=== PATIENT | female | born 1955 | race Caucasian/White ===

== ENCOUNTER → 2017-12-19 | Outpatient (CLI) | payer OTHER ==
[~2017-12-19] MED LIST: ACET325 PO; ANTI-DEPRESSANT; ANXIETY PILL; ASPI325 PO; Adipex-P37.5 M1 PO; HYDACE10B PO; LEVO750 PO; METR500 PO; NEBI5 PO; Prozac20 MG PO; SLEEPING PILL; TEMA30 PO
[2017-12-19 14:22] LABS: BASOPHILS ABSOLUTE AUTO 0.02 K/mm3 (0.00-0.23); BASOPHILS PERCENT AUTO 1 % (0-2); EOSINOPHILS ABSOLUTE AUTO 0.06 K/mm3 (0.00-0.68); EOSINOPHILS PERCENT AUTO 2 % (0-6); Hematocrit 43.2 % (33.0-51.0); Hemoglobin 14.7 g/dL (11.5-16.0); IMMATURE GRAN ABSOLUTE AUTO 0.02 K/mm3 (0.00-0.10); IMMATURE GRAN PERCENT AUTO 1 % (0-1); LYMPHOCYTES ABSOLUTE AUTO 0.87 K/mm3 (0.84-5.20); LYMPHOCYTES PERCENT AUTO 27 % (21-46); MONOCYTES ABSOLUTE AUTO 0.52 K/mm3 (0.16-1.47); MONOCYTES PERCENT AUTO 16 % (4-13); Mean Corpuscular HGB 33.9 pg (26.0-34.0); Mean Corpuscular Volume 100 fL (80-100); Mean Platelet Volume 11.1 fL (9.1-12.4); NEUTROPHILS ABSOLUTE AUTO 1.78 K/mm3 (1.96-9.15); NEUTROPHILS PERCENT AUTO 55 % (41-73); Platelet Count 147 K/mm3 (150-400); RDW Coefficient Variation 11.9 % (11.7-14.2); RDW Standard Deviation 43.8 fL (35.1-46.3); Red Blood Cell Count 4.34 M/mm3 (3.80-5.20); White Blood Cell Count 3.27 K/mm3 (4.00-11.30)
[2017-12-19 14:37] LABS: Alanine Aminotransfer (ALT/SGP 32 U/L (12-78); Albumin, Blood 3.7 g/dL (3.4-5.0); Albumin/Globulin Ratio 1.1 (0.8-1.8); Alk Phos 106 U/L (40-126); Anion Gap 10 mmol/L (6-16); Aspartate Aminotrans (AST/SGOT 27 U/L (12-37); Bilirubin, Total 0.4 mg/dL (0.1-1.0); Blood Urea Nitrogen 10 mg/dL (8-24); Bun/Creatinine Ratio 10.6 (12.0-20.0); CO2, Blood 29 mmol/L (21-32); Calcium, Blood 8.4 mg/dL (8.5-10.1); Chloride, Blood 99 mmol/L (98-108); Creatinine, Blood 0.94 mg/dL (0.40-1.00); Globulin, Blood 3.4 g/dL (2.2-4.0); Glomerular Filtration Rate >60 (60-); Glucose, Blood 114 mg/dL (70-99); Potassium, Blood 3.4 mmol/L (3.5-5.5); Sodium, Blood 138 mmol/L (136-145); Total Protein, Blood 7.1 g/dL (6.4-8.2); Troponin I <0.017 ng/mL (0.000-0.040)
[2017-12-22 14:46] LABS: CHOL/HDL RATIO 5.7; Cholesterol 172 mg/dL (50-200); HDL Cholesterol 30 mg/dL (>39); LDL/HDL RATIO 4.1; Low Density Lipoprotein Chol 124 mg/dL (<110); Triglycerides 92 mg/dL (30-160); Very Low Density Lipoprot Chol 18 mg/dL (6-32)
== END | disposition home or self-care (01) ==
LOC: LAB EV 14:18
PROVIDERS: General Practice; Nurse Practitioner
DX: Z13.220 Encounter for screening for lipoid disorders (principal); I48.91 Unspecified atrial fibrillation
CPT/HCPCS: 80053; 80061; 84484; 85025

== ENCOUNTER → 2018-03-18 | Outpatient (CLI) | payer OTHER ==
[2018-03-18 15:21] LABS: BASOPHILS ABSOLUTE AUTO 0.06 K/mm3 (0.00-0.23); BASOPHILS PERCENT AUTO 1 % (0-2); EOSINOPHILS PERCENT AUTO 1 % (0-6); Hematocrit 41.4 % (33.0-51.0); Hemoglobin 14.1 g/dL (11.5-16.0); IMMATURE GRAN ABSOLUTE AUTO 0.05 K/mm3 (0.00-0.10); IMMATURE GRAN PERCENT AUTO 1 % (0-1); LYMPHOCYTES ABSOLUTE AUTO 1.43 K/mm3 (0.84-5.20); LYMPHOCYTES PERCENT AUTO 18 % (21-46); MONOCYTES ABSOLUTE AUTO 0.73 K/mm3 (0.16-1.47); MONOCYTES PERCENT AUTO 9 % (4-13); Mean Corpuscular HGB 34.1 pg (26.0-34.0); Mean Corpuscular HGB Conc 34.1 g/dL (31.5-36.5); Mean Corpuscular Volume 100 fL (80-100); Mean Platelet Volume 10.8 fL (9.1-12.4); NEUTROPHILS PERCENT AUTO 70 % (41-73); Platelet Count 226 K/mm3 (150-400); RDW Coefficient Variation 13.2 % (11.7-14.2); Red Blood Cell Count 4.13 M/mm3 (3.80-5.20); White Blood Cell Count 7.77 K/mm3 (4.00-11.30)
[2018-03-18 15:34] LABS: Alanine Aminotransfer (ALT/SGP 32 U/L (12-78); Albumin, Blood 3.7 g/dL (3.4-5.0); Alk Phos 126 U/L (40-126); Anion Gap 6 mmol/L (6-16); Aspartate Aminotrans (AST/SGOT 26 U/L (12-37); Bilirubin, Total 0.6 mg/dL (0.1-1.0); Blood Urea Nitrogen 12 mg/dL (8-24); Bun/Creatinine Ratio 12.8 (12.0-20.0); CO2, Blood 34 mmol/L (21-32); Calcium, Blood 8.8 mg/dL (8.5-10.1); Chloride, Blood 102 mmol/L (98-108); Creatinine, Blood 0.94 mg/dL (0.40-1.00); Globulin, Blood 3.6 g/dL (2.2-4.0); Glomerular Filtration Rate >60 (60-); Glucose, Blood 125 mg/dL (70-99); Potassium, Blood 3.7 mmol/L (3.5-5.5); Sodium, Blood 142 mmol/L (136-145); Total Protein, Blood 7.3 g/dL (6.4-8.2)
== END ==
LOC: LAB SHORT 15:18 → LAB EV 15:18
PROVIDERS: General Practice
DX: R10.9 Unspecified abdominal pain (principal)
CPT/HCPCS: 80053; 83690; 85025

== ENCOUNTER → 2018-09-15 | Outpatient (CLI) | payer OTHER | END | disposition home or self-care (01) | LOC: LAB SHORT 11:48 → LAB 11:48 | PROVIDERS: Nurse Practitioner | DX: N95.0 Postmenopausal bleeding (principal) | CPT/HCPCS: G0145 ==

== ENCOUNTER → 2018-10-04 | Outpatient (CLI) | payer OTHER ==
[~2018-10-04] MED LIST changes: +Lasix20 MG PO
[2018-10-04 17:34] LABS: BASOPHILS ABSOLUTE AUTO 0.04 K/mm3 (0.00-0.23); BASOPHILS PERCENT AUTO 1 % (0-2); EOSINOPHILS ABSOLUTE AUTO 0.07 K/mm3 (0.00-0.68); EOSINOPHILS PERCENT AUTO 1 % (0-6); Hematocrit 39.9 % (33.0-51.0); Hemoglobin 13.5 g/dL (11.5-16.0); IMMATURE GRAN ABSOLUTE AUTO 0.04 K/mm3 (0.00-0.10); IMMATURE GRAN PERCENT AUTO 1 % (0-1); LYMPHOCYTES ABSOLUTE AUTO 1.73 K/mm3 (0.84-5.20); LYMPHOCYTES PERCENT AUTO 22 % (21-46); MONOCYTES ABSOLUTE AUTO 0.82 K/mm3 (0.16-1.47); MONOCYTES PERCENT AUTO 10 % (4-13); Mean Corpuscular HGB 34.5 pg (26.0-34.0); Mean Corpuscular HGB Conc 33.8 g/dL (31.5-36.5); Mean Corpuscular Volume 102 fL (80-100); Mean Platelet Volume 11.5 fL (9.1-12.4); NEUTROPHILS PERCENT AUTO 66 % (41-73); Platelet Count 199 K/mm3 (150-400); RDW Coefficient Variation 13.5 % (11.7-14.2); Red Blood Cell Count 3.91 M/mm3 (3.80-5.20)
[2018-10-04 17:49] LABS: Alanine Aminotransfer (ALT/SGP 66 U/L (12-78); Albumin, Blood 3.6 g/dL (3.4-5.0); Albumin/Globulin Ratio 1.2 (0.8-1.8); Alk Phos 130 U/L (40-126); Anion Gap 10 mmol/L (6-16); Aspartate Aminotrans (AST/SGOT 40 U/L (12-37); Bilirubin, Total 0.9 mg/dL (0.1-1.0); Blood Urea Nitrogen 17 mg/dL (8-24); Bun/Creatinine Ratio 16.5 (12.0-20.0); CO2, Blood 27 mmol/L (21-32); Calcium, Blood 8.6 mg/dL (8.5-10.1); Chloride, Blood 100 mmol/L (98-108); Creatinine, Blood 1.03 mg/dL (0.40-1.00); Globulin, Blood 3.1 g/dL (2.2-4.0); Glomerular Filtration Rate 54 (60-); Glucose, Blood 120 mg/dL (70-99); Potassium, Blood 3.7 mmol/L (3.5-5.5); Sodium, Blood 137 mmol/L (136-145); Total Protein, Blood 6.7 g/dL (6.4-8.2); Troponin I <0.017 ng/mL (0.000-0.040)
== END ==
LOC: LAB SHORT 17:30 → LAB EV 17:30
PROVIDERS: Emergency Medicine
DX: R06.02 Shortness of breath (principal)
CPT/HCPCS: 80053; 83880; 84484; 85025

== ENCOUNTER → 2018-10-05 | Outpatient (CLI) | payer OTHER ==
[2018-10-05 10:16] LABS: Troponin I <0.015 ng/mL (0.000-0.040)
[2018-10-05 10:57] LABS: Thyroid Stimulating Hormone 3.301 uIU/mL (0.360-4.800)
== END | disposition home or self-care (01) ==
LOC: LAB EV 09:49 → LAB SHORT 09:49
PROVIDERS: Physician Assistant
DX: R07.9 Chest pain, unspecified (principal)
CPT/HCPCS: 83880; 84443; 84484; 85379

== ENCOUNTER 2018-10-06 11:50 | Emergency (ER) | payer OTHER ==
[~2018-10-06] VITALS: Ht 170.2 cm; Wt 123.0 kg
[~2018-10-06 11:50] MED LIST changes: -Lasix20 MG PO
[2018-10-06 12:44] LABS: BASOPHILS ABSOLUTE AUTO 0.06 K/mm3 (0.00-0.23); BASOPHILS PERCENT AUTO 1 % (0-2); EOSINOPHILS ABSOLUTE AUTO 0.06 K/mm3 (0.00-0.68); EOSINOPHILS PERCENT AUTO 1 % (0-6); Hemoglobin 14.2 g/dL (11.5-16.0); IMMATURE GRAN ABSOLUTE AUTO 0.09 K/mm3 (0.00-0.10); IMMATURE GRAN PERCENT AUTO 1 % (0-1); LYMPHOCYTES ABSOLUTE AUTO 1.52 K/mm3 (0.84-5.20); LYMPHOCYTES PERCENT AUTO 19 % (21-46); MONOCYTES ABSOLUTE AUTO 0.55 K/mm3 (0.16-1.47); MONOCYTES PERCENT AUTO 7 % (4-13); Mean Corpuscular HGB Conc 32.3 g/dL (31.5-36.5); Mean Platelet Volume 11.4 fL (9.1-12.4); NEUTROPHILS ABSOLUTE AUTO 5.66 K/mm3 (1.96-9.15); NEUTROPHILS PERCENT AUTO 71 % (41-73); NRBC ABSOLUTE 0.02 K/mm3 (0.00-0.02); NRBC Auto 0.3 /100 WBC (0.0-0.2); Platelet Count 200 K/mm3 (150-400); RDW Coefficient Variation 13.4 % (11.7-14.2); RDW Standard Deviation 51.2 fL (35.1-46.3); Red Blood Cell Count 4.18 M/mm3 (3.80-5.20); White Blood Cell Count 7.94 K/mm3 (4.00-11.30)
[2018-10-06 12:45] LABS: Mean Corpuscular Volume 105 fL (80-100)
[2018-10-06 13:08] LABS: Alanine Aminotransfer (ALT/SGP 94 U/L (12-78); Albumin, Blood 3.5 g/dL (3.4-5.0); Albumin/Globulin Ratio 1.2 (0.8-1.8); Alk Phos 139 U/L (50-136); Anion Gap 7 mmol/L (6-16); Aspartate Aminotrans (AST/SGOT 63 U/L (12-37); Bilirubin, Total 1.1 mg/dL (0.1-1.0); Blood Urea Nitrogen 14 mg/dL (8-24); Bun/Creatinine Ratio 15.5 (12.0-20.0); CO2, Blood 29 mmol/L (21-32); Calcium, Blood 8.5 mg/dL (8.5-10.1); Chloride, Blood 101 mmol/L (98-108); Glomerular Filtration Rate >60 (60-); Glucose, Blood 125 mg/dL (70-99); Potassium, Blood 3.5 mmol/L (3.5-5.5); Sodium, Blood 137 mmol/L (136-145); Total Protein, Blood 6.5 g/dL (6.4-8.2)
[2018-10-06] MEDS ORDERED: Lasix20 MG PO (16:21)
== END 2018-10-06 16:37 | disposition home or self-care (01) ==
LOC: ER 11:50
PROVIDERS: Physician Assistant
DX: I50.9 Heart failure, unspecified (principal); Z91.011 Allergy to milk products; Z79.899 Other long term (current) drug therapy; Z79.82 Long term (current) use of aspirin; I48.91 Unspecified atrial fibrillation
CPT/HCPCS: 36415; 71260; 80053; 85025; 93005; 93010; 99285-25; Q9967

== ENCOUNTER → 2018-10-14 | Outpatient (CLI) | payer OTHER ==
[~2018-10-14] MED LIST changes: +Lasix20 MG PO
== END | disposition home or self-care (01) ==
LOC: PLD 13:08 → LAB SHORT 13:08
DX: N95.0 Postmenopausal bleeding (principal)
CPT/HCPCS: 88305

== ENCOUNTER 2019-01-17 10:47 | Inpatient (IN) | payer OTHER ==
[~2019-01-17] VITALS: Ht 170.2 cm; Wt 113.5 kg
[~2019-01-17 10:47] MED LIST changes: +ELIQUIS5 MG PO; +LOSA50 PO; +METO50ER PO; +TORSE20 PO
[2019-01-17 11:45] LABS: BASOPHILS ABSOLUTE AUTO 0.04 K/mm3 (0.00-0.23); BASOPHILS PERCENT AUTO 1 % (0-2); EOSINOPHILS ABSOLUTE AUTO 0.07 K/mm3 (0.00-0.68); EOSINOPHILS PERCENT AUTO 1 % (0-6); Hematocrit 42.4 % (33.0-51.0); Hemoglobin 14.3 g/dL (11.5-16.0); IMMATURE GRAN ABSOLUTE AUTO 0.04 K/mm3 (0.00-0.10); IMMATURE GRAN PERCENT AUTO 1 % (0-1); LYMPHOCYTES ABSOLUTE AUTO 1.28 K/mm3 (0.84-5.20); LYMPHOCYTES PERCENT AUTO 22 % (21-46); MONOCYTES ABSOLUTE AUTO 0.46 K/mm3 (0.16-1.47); MONOCYTES PERCENT AUTO 8 % (4-13); Mean Corpuscular HGB Conc 33.7 g/dL (31.5-36.5); Mean Platelet Volume 10.8 fL (9.1-12.4); NEUTROPHILS ABSOLUTE AUTO 3.93 K/mm3 (1.96-9.15); NEUTROPHILS PERCENT AUTO 68 % (41-73); Platelet Count 176 K/mm3 (150-400); RDW Coefficient Variation 13.7 % (11.7-14.2); RDW Standard Deviation 52.6 fL (35.1-46.3); Red Blood Cell Count 4.08 M/mm3 (3.80-5.20); White Blood Cell Count 5.82 K/mm3 (4.00-11.30)
[2019-01-17 11:49] LABS: Mean Corpuscular Volume 104 fL (80-100)
[2019-01-17 11:59] LABS: Alanine Aminotransfer (ALT/SGP 29 U/L (12-78); Albumin, Blood 3.6 g/dL (3.4-5.0); Albumin/Globulin Ratio 0.9 (0.8-1.8); Alk Phos 131 U/L (50-136); Anion Gap 8 mmol/L (6-16); Aspartate Aminotrans (AST/SGOT 26 U/L (12-37); Bilirubin, Total 1.7 mg/dL (0.1-1.0); Blood Urea Nitrogen 13 mg/dL (8-24); Bun/Creatinine Ratio 16.3 (12.0-20.0); CO2, Blood 32 mmol/L (21-32); Calcium, Blood 8.4 mg/dL (8.5-10.1); Chloride, Blood 95 mmol/L (98-108); Globulin, Blood 3.8 g/dL (2.2-4.0); Glomerular Filtration Rate >60 (60-); Glucose, Blood 147 mg/dL (70-99); Potassium, Blood 2.9 mmol/L (3.5-5.5); Sodium, Blood 135 mmol/L (136-145); Total Protein, Blood 7.4 g/dL (6.4-8.2); Troponin I <0.015 ng/mL (0.000-0.040)
[2019-01-17 12:23] LABS: Base Excess Venous 10.4 mmol/L; Bicarbonate Venous 32.3 mmol/L (24.0-30.0); PCO2 Venous 51 mmHg (38-42); PO2 Venous 56.6 mmHg (38-42); pH Blood Venous 7.43 (7.34-7.37)
[2019-01-17] MEDS ORDERED: Norco 10-325 T1 EACH PO (13:54)
[2019-01-17] MEDS ORDERED: POTCHL10ER PO (13:58)
[2019-01-17] MEDS ORDERED: LOSA50 PO ×2 (13:58→14:08)
[2019-01-17] MEDS ORDERED: HYDCHL25 PO (13:59)
[2019-01-17] MEDS ORDERED: TEMA30 PO (14:00)
[2019-01-17] MEDS ORDERED: Toprol Xl50 MG PO (14:00)
[2019-01-17] MEDS ORDERED: Fluoxetine HCl10 MG PO (14:01)
[2019-01-17] MEDS ORDERED: METO25ER PO (14:08)
--- NOTE | 2019-01-17 16:10 | NUR ---
PATIENT ADMISSION THE PATIENT WAS ADMITTED TO THE MEDICAL FLOOR, ROOM # 336 FROM THE E/RFOR COPD, AFTER REPORT WAS CALLED TO THE FLOOR. THE PATIENT IS ALERT AND ORENTATED X 4. THE PATIENT CAME WITH ORDERS FOR K+ AND NORMAL SALINE AT 100 ML/HR. THE PATIENT'S ADMISSION WAS COMPLETED AND HER ORDERS WERE RELEASED. THE PATIENT'S DOCTOR ASKED FOR A TELE ORDER AND A CADIOLOGY CONSULT, BOTH WERE ORDERED. THE PATIENT IS RESTING AT THIS TIME, WILL CONTINUE TO MONITOR.
--- NOTE | 2019-01-17 17:05 | NUR ---
On 01/17/19 at 1706 this patient gave this nursing instructor verbal consent to access chart and care for on 01/18/19 from [id number].
[2019-01-17 19:43] LABS: Potassium, Blood 3.8 mmol/L (3.5-5.5); Thyroid Stimulating Hormone 0.535 uIU/mL (0.360-4.800)
--- NOTE | 2019-01-18 05:06 | NUR ---
63 Y/O FEMALE RESTED COMFORTABLY ALL NIGHT WITH NO PAIN OR NAUSEA. PT ALERT ND ORIENTED X 3. PTS TELEMETRY REFLECTS A/FIB VIA GREASE MACHINE WORKER. PTS LABS FROM LAST NIGHT WERE ALL WNL (K+ 3.8, MG 2.0, THS 0.535). PTS BED IN LOW POSITION, CALL LIGHT AT SIDE.
[2019-01-18 05:37] LABS: Anion Gap 5 mmol/L (6-16); Blood Urea Nitrogen 16 mg/dL (8-24); Bun/Creatinine Ratio 20.1 (12.0-20.0); CO2, Blood 31 mmol/L (21-32); Calcium, Blood 9.1 mg/dL (8.5-10.1); Chloride, Blood 102 mmol/L (98-108); Glomerular Filtration Rate >60 (60-); Glucose, Blood 142 mg/dL (70-99); Potassium, Blood 4.1 mmol/L (3.5-5.5); Sodium, Blood 138 mmol/L (136-145)
--- NOTE | 2019-01-18 11:22 | NUR ---
Advance Directive education/ Spiritual Care visit conducted. Patient was interested in Advance Directives. I went through the importance and process of the Advance Directive and patient voiced an understanding and will fill it out with her health care pharmacy sales representative. Patient showed signs of emotional and spiritual weariness. I was able to give patient inspirational materials, reinforce helpful attitudes and practices and provide emotional support and prayer. Patient responded well and displayed evidence of restored hemalatha and hope.
--- NOTE | 2019-01-18 18:17 | NUR ---
SHIFT SUMMARY THE PATIENT PERSENTED THIS MORNING WITH ELEVATED HEART RATE, PER TELE. THE REST OF THE PATIENT'S VITALS WNL, THE PATIENT WAS A&O X4, WITH INSPIRATORY AND EXPERATORY WHEEZES. THE PATIENT HAS CONTINUED TO HAVE AN ELEVATED HR FOR MOST OF THE SHIFT. THE PATIENT'S DOCTOR AND SUPERVISOR AGRICULTURAL EDUCATION WERE BOTH NOTIFIED AND MULITIBLE ORDERS HAVE BEEN PLACED. THE PATIENT'S SUPERVISOR AGRICULTURAL EDUCATION JUST PLACED THE PATIENT ON STRICT I&O'S AND TOLD THE PATIENT TO LIMIT HER FLUID INTAKE. THE PATIENT AGREED TO DO SO. THE DOCTOR STATED THAT HE WOULD ADJUST THE PATIENT'S MEDICATIONS. THE PATIENT IS RESTING AT THIS TIME, WILL CONTINUE TO MONITOR.
--- NOTE | 2019-01-18 20:45 | NUR ---
2019 PER PODIATRIC MEDICINE DOCTOR, PTS HEART RATE IS 160-170. PT GIVEN SCHEDULED LOPRESSOR 50MG PO. PT SITTING UP IN CHAIR WATCHING TV, DENIES SOB, CHEST PAIN. 2039 PTS VITAL SIGNS ARE 129/80, 98.3--129--20, 93% ON ROOM AIR. 2044 CHRISTIANA NEWBERRY NOTIFIED OF HEART RATE WITH ORDERS TO GIVE LOPRESSOR 5MG, IVP, NOW.
--- NOTE | 2019-01-18 21:06 | NUR ---
PT SITTING CALMLY IN BEDSIDE CHAIR. LOPRESSOR 5MG IVP GIVEN, HEART RATE 150 PER PHOTOCOPY OPERATOR STAN. PT BP 132/98
--- NOTE | 2019-01-18 23:12 | NUR ---
telemetry reflects heart rate 130-140, pt c/o burning with tingling mid chest, denies chest pain, feels warm at chest. Pt BP 121/81. S PASTOR Madrigal noified with orders for stat 12 lead ekg and he will come to room and evaluate.
[2019-01-19 05:39] LABS: Anion Gap 9 mmol/L (6-16); Blood Urea Nitrogen 28 mg/dL (8-24); Bun/Creatinine Ratio 30.9 (12.0-20.0); CO2, Blood 26 mmol/L (21-32); Calcium, Blood 9.4 mg/dL (8.5-10.1); Chloride, Blood 101 mmol/L (98-108); Creatinine, Blood 0.91 mg/dL (0.40-1.00); Glomerular Filtration Rate >60 (60-); Glucose, Blood 165 mg/dL (70-99); Magnesium, Blood 2.1 mg/dL (1.6-2.4); Potassium, Blood 4.1 mmol/L (3.5-5.5); Sodium, Blood 136 mmol/L (136-145)
--- NOTE | 2019-01-19 05:41 | NUR ---
63 Y/O FEMALE HAD EVENTFUL NIGHT OF TACHYCARDIA WITH RATES AVERAGING 120-160s. PT WAS GIVEN LASIX 120MG IVP AT START OF SHIFT AND HAD VOIDED LARGE AMOUNTS CLEAR YELLOW FLUID ALL EVENING. PT GIVEN LOPRESSOR 5MG IVP X 2 LAST NIGHT, LOPRESSOR 12.5MG PO X 1 WITH LOWEST HEART RATE 124 IN AM PER SAND CAR WORKER STAN. PT WAS SEEN ONCE AT 2345 BY Emma COTTON NP TO EVALUATE ALL THE ABOVE. PT WAS MONITORED FREQUENTLY THROUGHOUT THE NIGHT BY THIS NURSE AND TAX PREPARER AND CHARGE NURSE (JORGE NORMAN RN) WAS KEPT ABREAST OF SITUATION. PT DENIED NAUSEA. PTS BED IN LOW POSITION, CALL LIGHT AT SIDE.
--- NOTE | 2019-01-19 15:48 | NUR ---
ELEVATED HR PATIENT HR HAS BEEN MAINTINING IN 110'S. THIS AFTERNOON SPARMAKER INFORMED THIS RN THAT THE HR HAS INCREASED INTO THE 120'S AND THEN INTO 140'S. IV LOPRESSOR GIVEN WITH LITTLE RESPONSE. CALL TO DR. DAVENPORT, ORDERS GIVEN FOR PO LOPRESSOR Q8. WILL CONTINUE TO MONITOR.
--- NOTE | 2019-01-19 17:05 | NUR ---
CALL TO CARDIOLOGY FRAMING MILL OPERATOR HELPER INFORMED THIS RN THAT PATIENT'S HR HAD ELEVATED IN TO THE 150'S. PATIENT IS ASYMPTOMATIC. DR. DAVENPORT INFORMED, ORDERS GIVEN TO INCREASE PO LOPRESSOR TO 100 MG BID AND CONTINUE TO MONITOR PATIENT AT THIS TIME.
[2019-01-19 17:51] LABS: Bun/Creatinine Ratio 31.5 (12.0-20.0); Calcium, Blood 9.7 mg/dL (8.5-10.1); Creatinine, Blood 1.08 mg/dL (0.40-1.00); Potassium, Blood 3.9 mmol/L (3.5-5.5)
--- NOTE | 2019-01-19 18:29 | NUR ---
SHIFT SUMMARY PATIENT DENIES PAIN, NAUSEA, AND SHORTNESS OF BREATH. OCCASSIONAL NONPRODUCTIVE COUGH. HR ELEVATED IN THE 120' TO 150'S TODAY. ROCK LOADER NOTIFIED. PATIENT RECIEVED ONE TIME DOSE OF 200MG OF IV LASIX AND 25 OF HCTZ TODAY. IV LOPRESSOR GIVEN ONCE AND PO LOPRESSOR DOSE INCREASED. PATIENT ASYMPTOMATIC ND VISITING WITH FRIENDS IN ROOM. CALL LIGHT IN REACH, WILL CONTINUE TO MONITOR.
[2019-01-20 05:15] LABS: Bun/Creatinine Ratio 37.9 (12.0-20.0); Calcium, Blood 9.3 mg/dL (8.5-10.1); Creatinine, Blood 1.03 mg/dL (0.40-1.00); Magnesium, Blood 2.3 mg/dL (1.6-2.4)
--- NOTE | 2019-01-20 05:46 | NUR ---
SHELTER ADVOCATE SUMMARY PT AAOX4 AND INDEPENDENT IN ROOM. AT START OF SHIFT PT HR WAS AFIB 132 PER FEATURES REPORTER. GAVE PT NEW DOSE OF PO METOPROLOL 100 MG. SINCE METOPROLOL, PT HR HAS BEEN AVERAGING IN 90'S THROUGH THE NICE PER FEATURES REPORTER. OTHER VSS, WILL CONTINUE TO MONITOR.
--- NOTE | 2019-01-20 07:22 | NUR ---
ASSUMED CARE OF PT- BEDSIDE REPORT COMPLETE WITH NIGHT RN BREE. PT SLEEPING AT THE TIME OF REPORT. PER REPORT PT ALERT AND ORIENTED AND INDEPENDENT IN THE ROOM. PT HAS NO S&S OF DISTRESS NOTED AT THE TIME OF REPORT RESP E/U, CALL LIGHT IN REACH.
--- NOTE | 2019-01-20 18:39 | NUR ---
SHIFT SUMMARY- PT ON TELE RUNNING AFIB IN THE 110 RANGE THIS MORNING. RECIEVED A CALL FROM TELE FOR AN ELEVATED HR THIS AFTERNOON, PT WS MAKING HER BED AND WAS A SYMPTOMATIC OF THE ELEVATED RATE. HAD THE PT SIT AND REST AND THE HR CAME BACK DOWN TO 110'S. THIS EVEING RECIEVED A CALL PT WAS TRENDING UP AVERAGING IN THE 120'S IS AGAIN ASYMPTOMATIC, PT HAS PO SCHEDULED MEDICATIONS AT 2100, SHE WISHES NOT TO USE THE IV IF POSSIBLE THE ORDER IS FOR A HR SUSTAINED OVER 120 HERS IS AVERAGING IN THE 120'S. ASKED THE PT TO RELAX AND WILL REASSES BEFORE CHANGE OF SHIFT. OTHERWISE PT IS INDEPENDENT IN THE ROOM, HAD A SHOWER THIS MORNING, HAS A NEW IV IS ON ROOM AIR AND HAS NO C/O PAIN. WILL PASS ON IN BEDSIDE REPORT.
--- NOTE | 2019-01-21 04:12 | NUR ---
NUT STEAMER SUMMARY PT AAOX4 AND INDEPENDENT IN THE ROOM. HR ELEVATED IN 120-130'S AT START OF SHIFT. GAVE 100 MG PO METOPROLOL WITH BEDTIME MEDS BUT HR REMAINED IN 120'S. GAVE 5 MG IV LOPRESSOR. PT HAS BEEN AVERAGING 90'S SINCE IV LOPRESSOR PER THREAD SINGER. VSS, WILL CONTINUE TO MONITOR.
[2019-01-21 05:16] LABS: BASOPHILS ABSOLUTE AUTO 0.04 K/mm3 (0.00-0.23); BASOPHILS PERCENT AUTO 0 % (0-2); EOSINOPHILS PERCENT AUTO 0 % (0-6); IMMATURE GRAN ABSOLUTE AUTO 0.18 K/mm3 (0.00-0.10); IMMATURE GRAN PERCENT AUTO 1 % (0-1); LYMPHOCYTES ABSOLUTE AUTO 1.74 K/mm3 (0.84-5.20); LYMPHOCYTES PERCENT AUTO 10 % (21-46); MONOCYTES ABSOLUTE AUTO 1.47 K/mm3 (0.16-1.47); MONOCYTES PERCENT AUTO 9 % (4-13); Mean Corpuscular HGB 35.9 pg (26.0-34.0); Mean Corpuscular HGB Conc 34.8 g/dL (31.5-36.5); Mean Corpuscular Volume 103 fL (80-100); Mean Platelet Volume 11.5 fL (9.1-12.4); NEUTROPHILS ABSOLUTE AUTO 13.34 K/mm3 (1.96-9.15); NEUTROPHILS PERCENT AUTO 80 % (41-73); Platelet Count 281 K/mm3 (150-400); RDW Coefficient Variation 13.2 % (11.7-14.2); RDW Standard Deviation 49.6 fL (35.1-46.3); Red Blood Cell Count 4.46 M/mm3 (3.80-5.20); White Blood Cell Count 16.77 K/mm3 (4.00-11.30)
[2019-01-21 06:16] LABS: Bun/Creatinine Ratio 43.8 (12.0-20.0); Calcium, Blood 9.5 mg/dL (8.5-10.1); Creatinine, Blood 1.28 mg/dL (0.40-1.00); Magnesium, Blood 2.4 mg/dL (1.6-2.4); Potassium, Blood 3.8 mmol/L (3.5-5.5)
--- NOTE | 2019-01-21 18:43 | NUR ---
SUMMARY PT IS A/O X4, PLEASANT/COOPERATIVE AFFECT. IND TO BR. DX COPD EXAC, SHE STATE NO SOB @ REST, STATE OCCASIONAL DRY/FOURTH MATE COUGH. BIOX HIGH 90'S ON RA. PULMONOLOGY FOLLOWING. CARDIOLOGY CONSULTED FOR AFIB W RVR, DR HIRSCH IN THIS AM, ADJUST HEART MEDS. TELE REPORTS CONTINUING AFIB HOWEVER HR TRENDING DOWN FROM 120 TO 90'S THIS AFTERNOON. PT REPORT BLOOD IN URINE LATE AFTERNOON, NOTIFIED, ORDER TO HOLD XARALTO & OBTAIN STAT CBC, CALL W RESULTS. ORDER U/A. PT STATE UNDERSTANDING.
[2019-01-21 19:07] LABS: BASOPHILS ABSOLUTE AUTO 0.04 K/mm3 (0.00-0.23); BASOPHILS PERCENT AUTO 0 % (0-2); EOSINOPHILS ABSOLUTE AUTO 0.01 K/mm3 (0.00-0.68); EOSINOPHILS PERCENT AUTO 0 % (0-6); Hematocrit 50.7 % (33.0-51.0); Hemoglobin 17.8 g/dL (11.5-16.0); IMMATURE GRAN ABSOLUTE AUTO 0.23 K/mm3 (0.00-0.10); IMMATURE GRAN PERCENT AUTO 1 % (0-1); LYMPHOCYTES ABSOLUTE AUTO 1.68 K/mm3 (0.84-5.20); LYMPHOCYTES PERCENT AUTO 10 % (21-46); MONOCYTES ABSOLUTE AUTO 1.49 K/mm3 (0.16-1.47); MONOCYTES PERCENT AUTO 9 % (4-13); Mean Corpuscular HGB 36.1 pg (26.0-34.0); Mean Corpuscular HGB Conc 35.1 g/dL (31.5-36.5); Mean Corpuscular Volume 103 fL (80-100); Mean Platelet Volume 11.5 fL (9.1-12.4); NEUTROPHILS ABSOLUTE AUTO 13.51 K/mm3 (1.96-9.15); NEUTROPHILS PERCENT AUTO 80 % (41-73); Platelet Count 317 K/mm3 (150-400); RDW Coefficient Variation 13.2 % (11.7-14.2); RDW Standard Deviation 50.1 fL (35.1-46.3); Red Blood Cell Count 4.93 M/mm3 (3.80-5.20); White Blood Cell Count 16.96 K/mm3 (4.00-11.30)
--- NOTE | 2019-01-21 19:27 | NUR ---
NOTIFIED PA. YURY ABOUT PT'S HEMOGLOBIN LEVEL. HE WOULD LIKE THE PT TO HAVE HER 1800 DOSE OF XARELTO.
[2019-01-21 20:25] LABS: Source, Urine Clean Catch
[2019-01-21 20:29] LABS: Bilirubin, Urine Neg (Neg); Blood, Urine 4+ (Neg); Glucose Qualitative, Urine Neg (Neg); Ketones, Urine Neg (Neg); Leukocyte Esterase, Urine Neg (Neg); Nitrite, Urine Neg (Neg); Protein, Urine Neg (Neg); Specific Gravity, Urine 1.015 (1.003-1.022); Urobilinogen, Urine NORM (Normal)
[2019-01-21 20:38] LABS: Appearance, Urine Clear (Clear); Bacteria Not Seen /hpf; Color, Urine Yellow (P-Yellow); Red Blood Cells, Urine 0-2 /hpf (0-2); Squamous Epithelial Cells Few /hpf (Few); White Blood Cells, Urine Not Seen /hpf (0-5)
--- NOTE | 2019-01-22 04:30 | NUR ---
*SHIFT SUMMARY* PATIENT IS ALERT AND ORIENTED. PER REPORT PT HAD BLOOD IN HER URINE. PT USED CALL LIGHT AFTER URINATING FOR STAFF TO CHECK. NO BLOOD WAS PRESENT. SECOND URINATION HAD MINIMAL BLOOD IN IT, TWO TINY CLOTS IN THE URINE. URINE SAMPLE SENT TO LAB. PATIENT SLEPT WELL THROUGHOUT THE NIGHT. VITAL SIGNS STABLE. PATIENT ON ROOM AIR. NO COMPLAINTS OF PAIN.
[2019-01-22 05:46] LABS: Calcium, Blood 9.4 mg/dL (8.5-10.1); Creatinine, Blood 1.7 mg/dL (0.40-1.00); Magnesium, Blood 2.5 mg/dL (1.6-2.4); Potassium, Blood 3.5 mmol/L (3.5-5.5)
--- NOTE | 2019-01-22 15:58 | NUR ---
SHIFT SUMMARY THE PATIENT PRESENTED THIS SHIFT WITH VITALS WNL, A&O X4 AND WITH LUNG SOUNDS THAT WERE EX. WHEEZE AND DIMINISHED. THE PATIENT SPOKE WITH HER CARDICOLOGIST THIS MORNING AND SHE WILL BE SCHEDULED FOR A CARDIO-VERSION ON 01/22/19. THE PATIENT IS TO BE NPO AFTER MIDNIGHT FOR HER PROCEDURE. THE PATIENT HAS RESTED MOST OF THE SHIFT, VISITING WITH FRIENDS. THE PATIENT IS SLEEPING AT THIS TIME, WILL CONTINUE TO MONINTOR.
[2019-01-23 05:47] LABS: BASOPHILS ABSOLUTE AUTO 0.04 K/mm3 (0.00-0.23); BASOPHILS PERCENT AUTO 0 % (0-2); EOSINOPHILS ABSOLUTE AUTO 0.03 K/mm3 (0.00-0.68); EOSINOPHILS PERCENT AUTO 0 % (0-6); Hematocrit 46.3 % (33.0-51.0); Hemoglobin 16.8 g/dL (11.5-16.0); IMMATURE GRAN ABSOLUTE AUTO 0.41 K/mm3 (0.00-0.10); IMMATURE GRAN PERCENT AUTO 3 % (0-1); LYMPHOCYTES ABSOLUTE AUTO 2.31 K/mm3 (0.84-5.20); LYMPHOCYTES PERCENT AUTO 16 % (21-46); MONOCYTES ABSOLUTE AUTO 1.45 K/mm3 (0.16-1.47); MONOCYTES PERCENT AUTO 10 % (4-13); Mean Corpuscular HGB 36.9 pg (26.0-34.0); Mean Corpuscular HGB Conc 36.3 g/dL (31.5-36.5); Mean Corpuscular Volume 102 fL (80-100); Mean Platelet Volume 11.5 fL (9.1-12.4); NEUTROPHILS ABSOLUTE AUTO 10.65 K/mm3 (1.96-9.15); NEUTROPHILS PERCENT AUTO 72 % (41-73); Platelet Count 278 K/mm3 (150-400); RDW Coefficient Variation 13.2 % (11.7-14.2); Red Blood Cell Count 4.55 M/mm3 (3.80-5.20); White Blood Cell Count 14.89 K/mm3 (4.00-11.30)
--- NOTE | 2019-01-23 05:53 | NUR ---
*SHIFT SUMMARY* PATIENT IS ALERT AND ORIENTED. SLEPT WELL THROUGHOUT NIGHT. NO NEW CHANGES, VITAL SIGNS STABLE.USES CALL LIGHT APPROPRIATELY. PLAN IS FOR PT TO HAVE CARDIOVERSION THIS AM, UNSURE THE TIME.
[2019-01-23 06:17] LABS: Albumin, Blood 3.4 g/dL (3.4-5.0); Bilirubin, Total 0.6 mg/dL (0.1-1.0); Bun/Creatinine Ratio 51.3 (12.0-20.0); Calcium, Blood 9.1 mg/dL (8.5-10.1); Creatinine, Blood 1.19 mg/dL (0.40-1.00); Globulin, Blood 3.5 g/dL (2.2-4.0); Magnesium, Blood 2.6 mg/dL (1.6-2.4); Potassium, Blood 3.5 mmol/L (3.5-5.5); Total Protein, Blood 6.9 g/dL (6.4-8.2)
--- NOTE | 2019-01-23 17:47 | NUR ---
PATIENT WAS CARDIO VERTED TODAY. TOLERATED WELL AND HAS REMAINED NORMAL SINUS THROUGHOUT SHIFT. SHE HAS SLEPT THROUGH OUT THE DAY BUT HAS HAD NO COMPLAINTS OF WEAKNESS OR PAIN. SHE IS ALERT AND ORIENTED AND FRIENDLY AND COOPERATIVE WITH STAFF. NO ACUTE CHANGES.
--- NOTE | 2019-01-23 17:49 | NUR ---
NO ACUTE CHANGES .
--- NOTE | 2019-01-24 05:38 | NUR ---
*SHIFT SUMMARY* PATIENT IS ALERT AND ORIENTED. PT SLEPT WELL THROUGHOUT THE NIGHT, PT DID HAVE SLEEP STUDY DONE. NO COMPLAINTS THROUGHOUT THE NIGHT. HEART RATE AND RHYTHM CONTROLLED AND REGULAR. VITAL SIGNS STABLE.
[2019-01-24 07:51] LABS: Anion Gap 7 mmol/L (6-16); Blood Urea Nitrogen 36 mg/dL (8-24); Bun/Creatinine Ratio 38.2 (12.0-20.0); CO2, Blood 30 mmol/L (21-32); Calcium, Blood 9.3 mg/dL (8.5-10.1); Chloride, Blood 101 mmol/L (98-108); Creatinine, Blood 0.94 mg/dL (0.40-1.00); Glomerular Filtration Rate >60 (60-); Glucose, Blood 111 mg/dL (70-99); Magnesium, Blood 2.6 mg/dL (1.6-2.4); Potassium, Blood 3.9 mmol/L (3.5-5.5); Sodium, Blood 138 mmol/L (136-145)
[2019-01-24] MEDS ORDERED: LOSA25 PO (12:10)
[2019-01-24] MEDS ORDERED: Pacerone400 MG PO (12:11)
[2019-01-24] MEDS ORDERED: ACET325 PO (12:11)
[2019-01-24] MEDS ORDERED: AMLO5 PO (12:12)
[2019-01-24] MEDS ORDERED: BENZ100A PO (12:13)
[2019-01-24] MEDS ORDERED: Doxycycline Hy100 M3 PO (12:15)
[2019-01-24] MEDS ORDERED: GUAI600T33 PO (12:16)
[2019-01-24] MEDS ORDERED: ALBU90OI INH (12:17)
--- NOTE | 2019-01-24 13:50 | NUR ---
PATIENT TO DISCHARGE, IV REMOVED WITH NO SS OF INFECTION. MEDS CALLED INTO PHARMACY OF CHOICE. PATIENT EDUCTED REGARDING NEW MEDS AND INSTRUCTED TO FOLLOW UP WITH DOCTORS. APPOINTMENT TIMES GIVEN TO PATIENT. PATIENT WALKED OUT THE [facility] NURSE TO HER CAR. NURSE HELPED WITH BELONGINGS. PATIENT DROVE HERSELF HOME.
== END 2019-01-24 13:38 | disposition home or self-care (01) | DRG 308 ==
LOC: ER 10:47 → MEDS 10:48 → ER 14:16 → MEDS 14:16 → ENPENDDIS 01-24 11:10 → MEDS 01-24 13:38
PROVIDERS: Emergency Medicine; Family Medicine; Internal Medicine Cardiovascular Disease; Internal Medicine Interventional Cardiology; Nurse Practitioner Acute Care; ADMIT Internal Medicine Endocrinology, Diabetes & Metabolism
DX: I48.91 Unspecified atrial fibrillation (principal); I50.43 Acute on chronic combined systolic (congestive) and diastolic (congestive) heart failure; Z68.39 Body mass index [BMI] 39.0-39.9, adult; E66.01 Morbid (severe) obesity due to excess calories; J20.9 Acute bronchitis, unspecified; E87.6 Hypokalemia; I42.9 Cardiomyopathy, unspecified; E87.70 Fluid overload, unspecified; J30.9 Allergic rhinitis, unspecified; J45.909 Unspecified asthma, uncomplicated; N18.3 Chronic kidney disease, stage 3 (moderate); I12.9 Hypertensive chronic kidney disease with stage 1 through stage 4 chronic kidney disease, or unspecified chronic kidney disease; I08.1 Rheumatic disorders of both mitral and tricuspid valves
CPT/HCPCS: 36415; 71046; 80048; 80053; 81001; 82803; 83735; 83880; 84132; 84443; 84484; 85025; 92960; 93005; 93010; 94640; 94760; 94762; 96365; 96366; 96375; 96376; 99285-25; G0378; J0282; J1940; J2704; J2930; J3475; J3480; J7030; J7040; J7120; J7512

== ENCOUNTER 2019-02-06 12:08 | Emergency (ER) | payer OTHER ==
[~2019-02-06] VITALS: Ht 170.2 cm; Wt 113.4 kg
[~2019-02-06 12:08] MED LIST changes: +ALBU90OI INH; +AMLO5 PO; +BENZ100A PO; +Doxycycline Hy100 M3 PO; +Fluoxetine HCl10 MG PO; +GUAI600T33 PO; +HYDCHL25 PO; +LOSA25 PO; +METO25ER PO; +Norco 10-325 T1 EACH PO; +POTCHL10ER PO; +Pacerone400 MG PO; +Toprol Xl50 MG PO
[2019-02-06 13:01] LABS: BASOPHILS ABSOLUTE AUTO 0.04 K/mm3 (0.00-0.23); BASOPHILS PERCENT AUTO 1 % (0-2); EOSINOPHILS ABSOLUTE AUTO 0.14 K/mm3 (0.00-0.68); EOSINOPHILS PERCENT AUTO 2 % (0-6); Hematocrit 39.7 % (33.0-51.0); Hemoglobin 13.5 g/dL (11.5-16.0); IMMATURE GRAN ABSOLUTE AUTO 0.02 K/mm3 (0.00-0.10); IMMATURE GRAN PERCENT AUTO 0 % (0-1); LYMPHOCYTES ABSOLUTE AUTO 1.04 K/mm3 (0.84-5.20); LYMPHOCYTES PERCENT AUTO 16 % (21-46); MONOCYTES ABSOLUTE AUTO 0.48 K/mm3 (0.16-1.47); MONOCYTES PERCENT AUTO 7 % (4-13); Mean Corpuscular HGB 35.9 pg (26.0-34.0); Mean Corpuscular Volume 106 fL (80-100); Mean Platelet Volume 10.7 fL (9.1-12.4); NEUTROPHILS ABSOLUTE AUTO 4.88 K/mm3 (1.96-9.15); NEUTROPHILS PERCENT AUTO 74 % (41-73); Platelet Count 180 K/mm3 (150-400); RDW Coefficient Variation 13.7 % (11.7-14.2); Red Blood Cell Count 3.76 M/mm3 (3.80-5.20)
[2019-02-06 13:18] LABS: Alanine Aminotransfer (ALT/SGP 42 U/L (12-78); Albumin, Blood 3.5 g/dL (3.4-5.0); Albumin/Globulin Ratio 1.1 (0.8-1.8); Alk Phos 130 U/L (50-136); Anion Gap 6 mmol/L (6-16); Aspartate Aminotrans (AST/SGOT 24 U/L (12-37); Bilirubin, Total 1.1 mg/dL (0.1-1.0); Blood Urea Nitrogen 8 mg/dL (8-24); Bun/Creatinine Ratio 8.9 (12.0-20.0); CO2, Blood 29 mmol/L (21-32); Calcium, Blood 8.8 mg/dL (8.5-10.1); Chloride, Blood 105 mmol/L (98-108); Globulin, Blood 3.2 g/dL (2.2-4.0); Glomerular Filtration Rate >60 (60-); Glucose, Blood 103 mg/dL (70-99); Potassium, Blood 4.5 mmol/L (3.5-5.5); Sodium, Blood 140 mmol/L (136-145); Total Protein, Blood 6.7 g/dL (6.4-8.2)
[2019-02-06 13:26] LABS: International Normalized Ratio 1.05; Prothrombin Time Results 11.1 Sec (9.7-11.5)
[2019-02-06] MEDS ORDERED: Lasix40 MG PO (16:49)
== END 2019-02-06 17:03 | disposition home or self-care (01) ==
LOC: ER 12:08
PROVIDERS: Physician Assistant
DX: I50.40 Unspecified combined systolic (congestive) and diastolic (congestive) heart failure (principal); I48.91 Unspecified atrial fibrillation; Z79.899 Other long term (current) drug therapy
CPT/HCPCS: 36415; 71046; 80053; 83880; 85025; 85610; 93005; 93010; 99285-25

== ENCOUNTER 2019-08-13 16:40 | Emergency (ER) | payer OTHER ==
[~2019-08-13] VITALS: Ht 170.2 cm; Wt 113.4 kg
[~2019-08-13 16:40] MED LIST changes: +Lasix40 MG PO
[2019-08-13 17:14] LABS: BASOPHILS ABSOLUTE AUTO 0.02 K/mm3 (0.00-0.23); BASOPHILS PERCENT AUTO 0 % (0-2); EOSINOPHILS ABSOLUTE AUTO 0.23 K/mm3 (0.00-0.68); EOSINOPHILS PERCENT AUTO 4 % (0-6); Hematocrit 40.1 % (33.0-51.0); Hemoglobin 13.4 g/dL (11.5-16.0); IMMATURE GRAN ABSOLUTE AUTO 0.02 K/mm3 (0.00-0.10); IMMATURE GRAN PERCENT AUTO 0 % (0-1); LYMPHOCYTES ABSOLUTE AUTO 1.32 K/mm3 (0.84-5.20); LYMPHOCYTES PERCENT AUTO 25 % (21-46); MONOCYTES ABSOLUTE AUTO 0.55 K/mm3 (0.16-1.47); MONOCYTES PERCENT AUTO 10 % (4-13); Mean Corpuscular HGB 34.4 pg (26.0-34.0); Mean Corpuscular HGB Conc 33.4 g/dL (31.5-36.5); Mean Corpuscular Volume 103 fL (80-100); Mean Platelet Volume 10.4 fL (9.1-12.4); NEUTROPHILS PERCENT AUTO 60 % (41-73); Platelet Count 168 K/mm3 (150-400); RDW Coefficient Variation 12.2 % (11.7-14.2); RDW Standard Deviation 46.4 fL (35.1-46.3); White Blood Cell Count 5.34 K/mm3 (4.00-11.30)
[2019-08-13 17:36] LABS: Troponin I <0.015 ng/mL (0.000-0.040)
[2019-08-13 17:37] LABS: Alanine Aminotransfer (ALT/SGP 30 U/L (12-78); Albumin, Blood 3.4 g/dL (3.4-5.0); Albumin/Globulin Ratio 0.9 (0.8-1.8); Alk Phos 140 U/L (50-136); Anion Gap 8 mmol/L (6-16); Aspartate Aminotrans (AST/SGOT 27 U/L (12-37); Bilirubin, Total 0.8 mg/dL (0.1-1.0); Blood Urea Nitrogen 8 mg/dL (8-24); Bun/Creatinine Ratio 10.2 (12.0-20.0); CO2, Blood 28 mmol/L (21-32); Chloride, Blood 100 mmol/L (98-108); Creatinine, Blood 0.78 mg/dL (0.40-1.00); Globulin, Blood 3.6 g/dL (2.2-4.0); Glomerular Filtration Rate >60 (60-); Glucose, Blood 120 mg/dL (70-99); Potassium, Blood 3.5 mmol/L (3.5-5.5); Sodium, Blood 136 mmol/L (136-145)
[2019-08-13] MEDS ORDERED: Monodox100 MG PO (19:17)
[2019-08-13] MEDS ORDERED: COMBIVENT RESPIM4 GM INH (19:17)
[2019-08-13] MEDS ORDERED: Prednisone20 MG PO (19:17)
== END 2019-08-13 19:52 | disposition home or self-care (01) ==
LOC: ER 16:40
PROVIDERS: Internal Medicine
DX: J44.1 Chronic obstructive pulmonary disease with (acute) exacerbation (principal); I50.9 Heart failure, unspecified; I48.91 Unspecified atrial fibrillation; Z88.8 Allergy status to other drugs, medicaments and biological substances; Z79.899 Other long term (current) drug therapy; Z79.01 Long term (current) use of anticoagulants
CPT/HCPCS: 36415; 71046; 80053; 83880; 84484; 85025; 93005; 93010; 94640; 99285-25; J7512

== ENCOUNTER → 2019-11-07 | Outpatient (CLI) | payer OTHER ==
[~2019-11-07] MED LIST changes: +COMBIVENT RESPIM4 GM INH; +Monodox100 MG PO; +Prednisone20 MG PO
== END | disposition home or self-care (01) ==
LOC: LAB SHORT 10:20 → LAB EV 10:20
DX: S81.802A Unspecified open wound, left lower leg, initial encounter (principal)
CPT/HCPCS: 87070; 87075; 87077; 87147; 87186; 87205

== ENCOUNTER 2019-11-24 01:18 | Day surgery (SDC) | payer OTHER | END 2019-11-24 23:37 | disposition home or self-care (01) | LOC: WOUND 01:18 | DX: L97.822 Non-pressure chronic ulcer of other part of left lower leg with fat layer exposed (principal); I10 Essential (primary) hypertension; I48.0 Paroxysmal atrial fibrillation; Z88.8 Allergy status to other drugs, medicaments and biological substances; Z79.899 Other long term (current) drug therapy; Z79.01 Long term (current) use of anticoagulants | CPT/HCPCS: G0463 ==

== ENCOUNTER 2019-11-28 00:35 | Day surgery (SDC) | payer OTHER | END 2019-11-28 12:00 | disposition home or self-care (01) | LOC: WOUND 00:35 | DX: L97.822 Non-pressure chronic ulcer of other part of left lower leg with fat layer exposed (principal) ==

== ENCOUNTER 2019-11-30 00:32 | Day surgery (SDC) | payer OTHER | END 2019-11-30 23:21 | disposition home or self-care (01) | LOC: WOUND 00:32 | DX: L97.822 Non-pressure chronic ulcer of other part of left lower leg with fat layer exposed (principal); I10 Essential (primary) hypertension; I48.0 Paroxysmal atrial fibrillation; Z79.01 Long term (current) use of anticoagulants; Z79.899 Other long term (current) drug therapy | CPT/HCPCS: G0463 ==

== ENCOUNTER 2019-12-07 00:28 | Day surgery (SDC) | payer OTHER | END 2019-12-07 22:52 | disposition home or self-care (01) | LOC: WOUND 00:28 | DX: L97.822 Non-pressure chronic ulcer of other part of left lower leg with fat layer exposed (principal); I48.0 Paroxysmal atrial fibrillation; I42.9 Cardiomyopathy, unspecified; I10 Essential (primary) hypertension ==

== ENCOUNTER 2019-12-11 00:38 | Day surgery (SDC) | payer OTHER | END 2019-12-11 22:50 | disposition home or self-care (01) | LOC: WOUND 00:38 | DX: L97.822 Non-pressure chronic ulcer of other part of left lower leg with fat layer exposed (principal) ==

== ENCOUNTER 2019-12-14 00:54 | Day surgery (SDC) | payer OTHER | END 2019-12-14 22:44 | disposition home or self-care (01) | LOC: WOUND 00:54 | DX: L97.822 Non-pressure chronic ulcer of other part of left lower leg with fat layer exposed (principal); I11.9 Hypertensive heart disease without heart failure; I43 Cardiomyopathy in diseases classified elsewhere; I48.0 Paroxysmal atrial fibrillation; Z79.899 Other long term (current) drug therapy; Z79.01 Long term (current) use of anticoagulants | CPT/HCPCS: 87081 ==

== ENCOUNTER 2019-12-18 01:31 | Day surgery (SDC) | payer OTHER | END 2019-12-18 22:38 | disposition home or self-care (01) | LOC: WOUND 01:31 | DX: L97.822 Non-pressure chronic ulcer of other part of left lower leg with fat layer exposed (principal) ==

== ENCOUNTER 2019-12-21 00:24 | Day surgery (SDC) | payer OTHER | END 2019-12-21 23:43 | disposition home or self-care (01) | LOC: WOUND 00:24 | DX: L97.822 Non-pressure chronic ulcer of other part of left lower leg with fat layer exposed (principal); I10 Essential (primary) hypertension; I48.0 Paroxysmal atrial fibrillation; Z79.899 Other long term (current) drug therapy; Z79.01 Long term (current) use of anticoagulants ==

== ENCOUNTER 2019-12-28 00:23 | Day surgery (SDC) | payer OTHER | END 2019-12-28 23:51 | disposition home or self-care (01) | LOC: WOUND 00:23 | DX: L97.822 Non-pressure chronic ulcer of other part of left lower leg with fat layer exposed (principal); I48.0 Paroxysmal atrial fibrillation; I42.9 Cardiomyopathy, unspecified; I10 Essential (primary) hypertension; Z79.899 Other long term (current) drug therapy ==

== ENCOUNTER 2020-01-11 00:14 | Day surgery (SDC) | payer OTHER | END 2020-01-11 22:42 | disposition home or self-care (01) | LOC: WOUND 00:14 | DX: L97.822 Non-pressure chronic ulcer of other part of left lower leg with fat layer exposed (principal); I48.0 Paroxysmal atrial fibrillation; I10 Essential (primary) hypertension ==

== ENCOUNTER 2020-01-18 00:18 | Day surgery (SDC) | payer OTHER | END 2020-01-18 22:45 | disposition home or self-care (01) | LOC: WOUND 00:18 | DX: L97.822 Non-pressure chronic ulcer of other part of left lower leg with fat layer exposed (principal); I10 Essential (primary) hypertension; Z79.899 Other long term (current) drug therapy | CPT/HCPCS: G0463 ==

== ENCOUNTER → 2020-05-22 | Outpatient (CLI) | payer OTHER ==
[~2020-05-22] MED LIST changes: +DOCU100 PO; +FLUO10 PO; +LOSARTAN POTASS50 M1; +Restoril30 MG PO; +Spironolactone25 MG PO; +TRAM50 PO; +VICODIN HP 10-1 EAC1 PO
[2020-05-24 07:10] LABS: HPV 16 Negative (Negative); HPV 18 Negative (Negative); HPV OTHER HR TYPES Negative (Negative)
== END | disposition home or self-care (01) ==
LOC: LAB SHORT 11:29 → LAB 11:29
PROVIDERS: Obstetrics & Gynecology
DX: Z01.419 Encounter for gynecological examination (general) (routine) without abnormal findings (principal)
CPT/HCPCS: 87624; G0123

== ENCOUNTER 2020-05-28 18:37 | Emergency (ER) | payer OTHER ==
[~2020-05-28] VITALS: Ht 170.2 cm; Wt 127.0 kg
[~2020-05-28 18:37] MED LIST changes: -DOCU100 PO; -FLUO10 PO; -LOSARTAN POTASS50 M1; -Restoril30 MG PO; -Spironolactone25 MG PO; -TRAM50 PO; -VICODIN HP 10-1 EAC1 PO
[2020-05-28] MEDS ORDERED: TORSE20 PO (19:35)
[2020-05-28] MEDS ORDERED: METO25ER PO (19:35)
[2020-05-28] MEDS ORDERED: Spironolactone25 MG PO (19:35)
[2020-05-28] MEDS ORDERED: FLUO10 PO (19:36)
[2020-05-28] MEDS ORDERED: VICODIN HP 10-1 EAC1 PO (19:36)
[2020-05-28] MEDS ORDERED: LOSARTAN POTASS50 M1 (19:36)
[2020-05-28] MEDS ORDERED: Restoril30 MG PO (19:37)
[2020-05-28] MEDS ORDERED: ELIQUIS5 MG PO (19:37)
[2020-05-28 20:19] LABS: BASOPHILS ABSOLUTE AUTO 0.06 K/mm3 (0.00-0.23); BASOPHILS PERCENT AUTO 1 % (0-2); EOSINOPHILS ABSOLUTE AUTO 0.13 K/mm3 (0.00-0.68); EOSINOPHILS PERCENT AUTO 2 % (0-6); Hematocrit 38.9 % (33.0-51.0); IMMATURE GRAN ABSOLUTE AUTO 0.03 K/mm3 (0.00-0.10); IMMATURE GRAN PERCENT AUTO 1 % (0-1); LYMPHOCYTES ABSOLUTE AUTO 1.23 K/mm3 (0.84-5.20); LYMPHOCYTES PERCENT AUTO 22 % (21-46); MONOCYTES ABSOLUTE AUTO 0.63 K/mm3 (0.16-1.47); MONOCYTES PERCENT AUTO 11 % (4-13); Mean Corpuscular HGB 34.6 pg (26.0-34.0); Mean Corpuscular HGB Conc 33.4 g/dL (31.5-36.5); Mean Corpuscular Volume 104 fL (80-100); Mean Platelet Volume 11.2 fL (9.1-12.4); NEUTROPHILS ABSOLUTE AUTO 3.53 K/mm3 (1.96-9.15); NEUTROPHILS PERCENT AUTO 63 % (41-73); Platelet Count 188 K/mm3 (150-400); RDW Coefficient Variation 11.6 % (11.7-14.2); RDW Standard Deviation 44.4 fL (35.1-46.3); Red Blood Cell Count 3.76 M/mm3 (3.80-5.20); White Blood Cell Count 5.61 K/mm3 (4.00-11.30)
[2020-05-28 20:39] LABS: Alanine Aminotransfer (ALT/SGP 34 U/L (12-78); Albumin, Blood 3.3 g/dL (3.4-5.0); Alk Phos 100 U/L (50-136); Anion Gap 6 mmol/L (6-16); Aspartate Aminotrans (AST/SGOT 25 U/L (12-37); Bilirubin, Total 0.4 mg/dL (0.1-1.0); Blood Urea Nitrogen 13 mg/dL (8-24); CO2, Blood 29 mmol/L (21-32); Calcium, Blood 8.6 mg/dL (8.5-10.1); Chloride, Blood 104 mmol/L (98-108); Creatinine, Blood 0.72 mg/dL (0.40-1.00); Globulin, Blood 3.2 g/dL (2.2-4.0); Glomerular Filtration Rate >60 (60-); Glucose, Blood 112 mg/dL (70-99); Potassium, Blood 3.4 mmol/L (3.5-5.5); Sodium, Blood 139 mmol/L (136-145); Total Protein, Blood 6.5 g/dL (6.4-8.2)
[2020-05-28] MEDS ORDERED: TRAM50 PO (21:10)
[2020-05-28] MEDS ORDERED: DOCU100 PO (21:10)
== END 2020-05-28 22:22 | disposition home or self-care (01) ==
LOC: ER 18:37
PROVIDERS: Emergency Medicine
DX: K52.9 Noninfective gastroenteritis and colitis, unspecified (principal); I11.0 Hypertensive heart disease with heart failure; I50.9 Heart failure, unspecified
CPT/HCPCS: 36415; 74177; 80053; 83690; 85025; 99284-25; Q9967

== ENCOUNTER 2020-06-28 11:19 | Day surgery (SDC) | payer OTHER ==
[~2020-06-28] VITALS: Ht 170.2 cm; Wt 123.6 kg
[~2020-06-28 11:19] MED LIST changes: +DOCU100 PO; +FLUO10 PO; +HYDR1TAB94 PO; +LOSARTAN POTASS50 M1; +Restoril30 MG PO; +SPIR25 PO; +Spironolactone25 MG PO; +TEMA15 PO; +TRAM50 PO; +VICODIN HP 10-1 EAC1 PO
== END 2020-06-28 13:23 | disposition home or self-care (01) ==
LOC: ORSCSDS 11:19
PROVIDERS: Internal Medicine Gastroenterology
PROC: 0DBE8ZX Excision of Large Intestine, Via Natural or Artificial Opening Endoscopic, Diagnostic (ICD-10-PCS; principal; 2020-06-28 12:45)
PROC: 0DBN8ZX Excision of Sigmoid Colon, Via Natural or Artificial Opening Endoscopic, Diagnostic (ICD-10-PCS; principal; 2020-06-28 12:45)
PROC: 0DBK8ZX Excision of Ascending Colon, Via Natural or Artificial Opening Endoscopic, Diagnostic (ICD-10-PCS; principal; 2020-06-28 12:45)
PROC: 0DBL8ZX Excision of Transverse Colon, Via Natural or Artificial Opening Endoscopic, Diagnostic (ICD-10-PCS; principal; 2020-06-28 12:45)
DX: R10.32 Left lower quadrant pain (principal); R19.7 Diarrhea, unspecified; D12.2 Benign neoplasm of ascending colon; D12.3 Benign neoplasm of transverse colon; D12.5 Benign neoplasm of sigmoid colon; K57.30 Diverticulosis of large intestine without perforation or abscess without bleeding; K64.8 Other hemorrhoids; I10 Essential (primary) hypertension; I42.9 Cardiomyopathy, unspecified; E66.01 Morbid (severe) obesity due to excess calories; Z68.41 Body mass index [BMI] 40.0-44.9, adult; Z79.01 Long term (current) use of anticoagulants; Z79.899 Other long term (current) drug therapy
CPT/HCPCS: 88305; J2704; J7120

== ENCOUNTER → 2020-10-07 | Outpatient (CLI) | payer OTHER ==
[~2020-10-07] MED LIST changes: +ANORO ELLIPTA1 EAC1 INH; +Percocet 5-3251 EACH PO
== END | disposition home or self-care (01) ==
LOC: LAB SHORT 16:02 → LAB EV 16:02
DX: G89.4 Chronic pain syndrome (principal)
CPT/HCPCS: G0480

== ENCOUNTER 2020-10-09 07:31 | Inpatient (IN) | payer OTHER ==
[~2020-10-09] VITALS: Ht 170.2 cm; Wt 129.0 kg
[~2020-10-09 07:31] MED LIST changes: -Percocet 5-3251 EACH PO
[2020-10-10 04:43] LABS: BASOPHILS ABSOLUTE AUTO 0.03 K/mm3 (0.00-0.23); BASOPHILS PERCENT AUTO 0 % (0-2); EOSINOPHILS ABSOLUTE AUTO 0.01 K/mm3 (0.00-0.68); EOSINOPHILS PERCENT AUTO 0 % (0-6); Hematocrit 38.4 % (33.0-51.0); Hemoglobin 12.3 g/dL (11.5-16.0); IMMATURE GRAN PERCENT AUTO 2 % (0-1); LYMPHOCYTES ABSOLUTE AUTO 1.05 K/mm3 (0.84-5.20); LYMPHOCYTES PERCENT AUTO 9 % (21-46); MONOCYTES ABSOLUTE AUTO 1.35 K/mm3 (0.16-1.47); MONOCYTES PERCENT AUTO 11 % (4-13); Mean Corpuscular HGB 35.9 pg (26.0-34.0); Mean Corpuscular Volume 112 fL (80-100); Mean Platelet Volume 11.4 fL (9.1-12.4); NEUTROPHILS ABSOLUTE AUTO 9.65 K/mm3 (1.96-9.15); NEUTROPHILS PERCENT AUTO 79 % (41-73); Platelet Count 152 K/mm3 (150-400); RDW Coefficient Variation 12.5 % (11.7-14.2); RDW Standard Deviation 52.6 fL (35.1-46.3); Red Blood Cell Count 3.43 M/mm3 (3.80-5.20); White Blood Cell Count 12.29 K/mm3 (4.00-11.30)
[2020-10-10 04:58] LABS: Anion Gap 7 mmol/L (6-16); Blood Urea Nitrogen 12 mg/dL (8-24); Bun/Creatinine Ratio 15.7 (12.0-20.0); CO2, Blood 23 mmol/L (21-32); Calcium, Blood 7.3 mg/dL (8.5-10.1); Chloride, Blood 108 mmol/L (98-108); Creatinine, Blood 0.76 mg/dL (0.40-1.00); Glomerular Filtration Rate >60 (60-); Glucose, Blood 124 mg/dL (70-99); Potassium, Blood 4.9 mmol/L (3.5-5.5); Sodium, Blood 138 mmol/L (136-145)
[2020-10-13] MEDS ORDERED: Percocet 5-3251 EACH PO (12:42)
== END 2020-10-13 14:00 | disposition home or self-care (01) | DRG 330 ==
LOC: SURS 07:31
PROVIDERS: ADMIT Surgery
PROC: 0DTN0ZZ Resection of Sigmoid Colon, Open Approach (ICD-10-PCS; principal; 2020-10-09 09:00)
DX: K57.32 Diverticulitis of large intestine without perforation or abscess without bleeding (principal); Z68.41 Body mass index [BMI] 40.0-44.9, adult; K57.20 Diverticulitis of large intestine with perforation and abscess without bleeding; E66.01 Morbid (severe) obesity due to excess calories; I10 Essential (primary) hypertension; I48.0 Paroxysmal atrial fibrillation; Z79.01 Long term (current) use of anticoagulants; Z20.822 Contact with and (suspected) exposure to COVID-19
CPT/HCPCS: 80048; 85025; 88307; 94760; 94762; A9270; J0295; J1100; J1200; J1650; J1885; J2250; J2405; J2704; J3010; J7120

== ENCOUNTER → 2021-01-09 | Outpatient (CLI) | payer OTHER ==
[~2021-01-09] MED LIST changes: +Percocet 5-3251 EACH PO
== END | disposition home or self-care (01) ==
LOC: LAB SHORT 13:25
DX: R93.89 Abnormal findings on diagnostic imaging of other specified body structures (principal)
CPT/HCPCS: 88305

== ENCOUNTER → 2021-01-09 | Outpatient (CLI) | payer OTHER ==
[2021-01-14 16:11] LABS: HPV 16 Negative (Negative); HPV 18 Negative (Negative); HPV OTHER HR TYPES Negative (Negative)
== END | disposition home or self-care (01) ==
LOC: LAB SHORT 10:04
PROVIDERS: Obstetrics & Gynecology
DX: Z01.419 Encounter for gynecological examination (general) (routine) without abnormal findings (principal)
CPT/HCPCS: 87624; G0123

== ENCOUNTER → 2021-03-24 | Outpatient (CLI) | payer OTHER | END | disposition home or self-care (01) | LOC: LAB SHORT 12:19 → EDSTATUS 12:35 | PROVIDERS: Nurse Practitioner | DX: G89.4 Chronic pain syndrome (principal) | CPT/HCPCS: G0480 ==

== ENCOUNTER → 2021-10-29 | Outpatient (CLI) | payer OTHER | END | disposition home or self-care (01) | LOC: PLD 07:31 → LAB SHORT 07:31 | DX: D48.5 Neoplasm of uncertain behavior of skin (principal); L82.1 Other seborrheic keratosis; Z85.820 Personal history of malignant melanoma of skin | CPT/HCPCS: 88305 ==

== ENCOUNTER → 2022-08-26 | Outpatient (CLI) | payer OTHER ==
[2022-08-26 17:48] LABS: Microalb/Creat Ratio UR, Rand 5.536 mg/g (0.000-30.000); Microalbumin, Random Urine 12.4 mg/L (0.000-20.000)
== END | disposition home or self-care (01) ==
LOC: LAB SHORT 12:00
PROVIDERS: Family Medicine
DX: I10 Essential (primary) hypertension (principal); E78.2 Mixed hyperlipidemia
CPT/HCPCS: 82043; 82570

== ENCOUNTER 2023-03-12 10:59 | Day surgery (SDC) | payer OTHER ==
[~2023-03-12] VITALS: Ht 167.6 cm; Wt 133.6 kg
[2023-03-12] VITALS (9 sets, daily range): BP systolic 131–146; BP diastolic 75–97
[~2023-03-12 10:59] MED LIST changes: +Orphenadrine C100 MG PO
[2023-03-12] MEDS ORDERED: CIPROFLOX-DEXA7.5 ML BOTHEARS (11:42)
[2023-03-12] MEDS ORDERED: Hydrocortiso453.6 G3 TOP (11:43)
[2023-03-12] MEDS ORDERED: AMLODIPINE BES2.5 MG PO (11:43)
[2023-03-12] MEDS ORDERED: FLUTICASONE-SA1 EAC9 INH (11:44)
[2023-03-12] MEDS ORDERED: COMBIVENT RESPIM4 G1 IH (11:44)
[2023-03-12] MEDS ORDERED: FUROSEMIDE40 MG PO (11:45)
--- NOTE | 2023-03-12 11:54 | NUR ---
Ambulatory in Day Surgery. History, Chart, Medications and Allergies reviewed before start of procedure. Lungs clear T/O to Auscultation. Patient confirms NPO status and agrees with scheduled surgery. Pre-Op teaching done. Pt verbalizes understanding. Patient States Post-Procedure ride home has been arranged. PT GLASSES TAKEN TO PACU FOR SAFEKEEPING. PT RING ON RIGHT HAND TAPED.
--- NOTE | 2023-03-12 15:13 | NUR ---
REPORT RECEIVED FROM GENIE CARPENTER RN. VSS. PT ABLE TO REPOSITION SELF IN BED. PT TOLERATING PO FOOD AND FLUIDS. PT DENIES PAIN, NAUSEA, OR DISCOMFORT AT THIS TIME. PT HAS MINIMAL AMOUNT OF BLOOD ON PERINEAL PAD NOTED.
--- NOTE | 2023-03-12 16:02 | NUR ---
Patient up to Ambulate independently. Gait steady. VSS. PT DENIES PAIN, NAUSEA, OR DISCOMFORT. PT ABLE TO VOID WITH MINIMAL BLEEDING. PT COMFORTABLE AND READY FOR DISCHARGE. Discharge instructions reviewed with patient. Patient verbalizes understanding. Copy given to patient to take home. Patient States Post-Procedure ride home has been arranged. Discharged via wheelchair to private car for ride home. PT BELONGINGS RETURNED TO PT.
== END 2023-03-12 16:07 | disposition home or self-care (01) ==
LOC: ORSCMMR 10:59 → ORD 12:30 → ORSCMMR 12:30
PROVIDERS: Obstetrics & Gynecology
PROC: 0UDB8ZX Extraction of Endometrium, Via Natural or Artificial Opening Endoscopic, Diagnostic (ICD-10-PCS; principal; 2023-03-12 13:00)
DX: N95.0 Postmenopausal bleeding (principal); R93.89 Abnormal findings on diagnostic imaging of other specified body structures; I48.91 Unspecified atrial fibrillation; I10 Essential (primary) hypertension; I50.9 Heart failure, unspecified; J44.9 Chronic obstructive pulmonary disease, unspecified; G47.33 Obstructive sleep apnea (adult) (pediatric); F32.A Depression, unspecified; Z79.899 Other long term (current) drug therapy
CPT/HCPCS: 88305; 93005; 93010; J1100; J1885; J2370; J2405; J2704; J3010; J7120

== ENCOUNTER 2025-07-08 16:32 | Inpatient (IN) | payer OTHER ==
[~2025-07-08] VITALS: Ht 170.2 cm; Wt 129.5 kg
[~2025-07-08 16:32] MED LIST changes: -AMIODARONE HCL200 M1 PO; -AMIODARONE HCL400 M1 PO; -Amiodarone HCl200 MG PO; -JARDIANCE10 MG PO; -ROSUVASTATIN CAL5 MG PO
[2025-07-08] MEDS ORDERED: Ipratropium Bromide INH 0.02% 0.5 mg/2.5ML Vial INH ONE (17:00)
[2025-07-08] MEDS ORDERED: Diltiazem HCl 5 MG / ML 5ML Vial IV ONE ×2 (17:00→18:15)
[2025-07-08] MEDS ORDERED: Magnesium Sulf 2 GM/Water 50ML 50 ML IV ONE (17:00)
[2025-07-08 17:45] LABS: BASOPHILS ABSOLUTE AUTO 0.07 K/mm3 (0.00-0.23); BASOPHILS PERCENT AUTO 1 % (0-2); EOSINOPHILS ABSOLUTE AUTO 0.03 K/mm3 (0.00-0.68); EOSINOPHILS PERCENT AUTO 0 % (0-6); Hematocrit 37.0 % (33.0-51.0); Hemoglobin 12.9 g/dL (11.5-16.0); IMMATURE GRAN ABSOLUTE AUTO 0.09 K/mm3 (0.00-0.10); IMMATURE GRAN PERCENT AUTO 1 % (0-1); LYMPHOCYTES ABSOLUTE AUTO 1.34 K/mm3 (0.84-5.20); LYMPHOCYTES PERCENT AUTO 13 % (21-46); MONOCYTES ABSOLUTE AUTO 1.26 K/mm3 (0.16-1.47); MONOCYTES PERCENT AUTO 12 % (4-13); Mean Corpuscular HGB Conc 34.9 g/dL (31.5-36.5); Mean Corpuscular Volume 107 fL (80-100); NEUTROPHILS ABSOLUTE AUTO 7.69 K/mm3 (1.96-9.15); NEUTROPHILS PERCENT AUTO 73 % (41-73); NRBC ABSOLUTE 0.03 K/mm3 (0.00-0.02); NRBC Auto 0.3 /100 WBC (0.0-0.2); Platelet Count 202 K/mm3 (150-400); RDW Coefficient Variation 13.5 % (11.7-14.2); RDW Standard Deviation 53.1 fL (35.1-46.3)
[2025-07-08 17:47] LABS: Anion Gap 12.0 mmol/L (3-11); Blood Urea Nitrogen 14.0 mg/dL (8-24); CO2, Blood 25.0 mmol/L (21-32); Calcium, Blood 8.7 mg/dL (8.5-10.1); Chloride, Blood 98.0 mmol/L (98-108); Creatinine, Blood 0.95 mg/dL (0.40-1.00); Glucose, Blood 131.0 mg/dL (70-99); Magnesium, Blood 1.4 mg/dL (1.6-2.4); Potassium, Blood 4.3 mmol/L (3.5-5.5); Sodium, Blood 131.0 mmol/L (136-145); Thyroid Stimulating Hormone 1.21 uIU/mL (0.360-4.800)
[2025-07-08] MEDS ORDERED: Amiodarone HCl 450 MG in NS 250 ML IV SCH (18:55)
[2025-07-08] MEDS ORDERED: Metoprolol Tartrate 1 MG/ML 5 ML VIAL IV ONE (19:15)
[2025-07-08] MEDS ORDERED: Albuterol 2.5 MG/3 ML VIAL INH PRN (19:55)
[2025-07-08] MEDS ORDERED: FLU VACC TS2025(65UP)/MF59C/PF 45 MCG/0.5 ML SYRINGE IM SCH (19:55)
[2025-07-08] MEDS ORDERED: Ondansetron HCl 2 MG / ML 2ML Vial IV PRN (19:55)
[2025-07-08] MEDS ORDERED: Metoprolol Tartrate 1 MG/ML 5 ML VIAL IV PRN (21:00)
[2025-07-08] MEDS ORDERED: ROSUVASTATIN CAL5 MG PO (22:02)
[2025-07-08 22:35] VITALS: BP 116/83
[2025-07-09] VITALS (8 sets, daily range): BP systolic 106–130; BP diastolic 65–98
[2025-07-09 04:39] LABS: Hematocrit 35.7 % (33.0-51.0); Hemoglobin 12.0 g/dL (11.5-16.0); Mean Corpuscular HGB Conc 33.6 g/dL (31.5-36.5); Mean Corpuscular Volume 112 fL (80-100); NRBC ABSOLUTE 0.03 K/mm3 (0.00-0.02); NRBC Auto 0.3 /100 WBC (0.0-0.2); Platelet Count 177 K/mm3 (150-400); RDW Coefficient Variation 13.6 % (11.7-14.2); RDW Standard Deviation 55.8 fL (35.1-46.3)
[2025-07-09 04:42] LABS: Magnesium, Blood 1.8 mg/dL (1.6-2.4)
[2025-07-09 04:43] LABS: Anion Gap 9.0 mmol/L (3-11); Blood Urea Nitrogen 16.0 mg/dL (8-24); CO2, Blood 31.0 mmol/L (21-32); Calcium, Blood 9.3 mg/dL (8.5-10.1); Chloride, Blood 97.0 mmol/L (98-108); Creatinine, Blood 0.89 mg/dL (0.40-1.00); Glucose, Blood 131.0 mg/dL (70-99); Potassium, Blood 3.3 mmol/L (3.5-5.5); Sodium, Blood 134.0 mmol/L (136-145)
--- NOTE | 2025-07-09 06:25 | NUR ---
PT ARRIVED TO THE FLOOR FROM THE ED VIA STRETCHER. PT NEEDED SBA/1 PERSON ASSISTANCE TO THE BATHROOM. PT WAS UNSTEADY ON FEET. PT DENIED ANY CHEST PAIN/PRESSURE. NO S/S OF RESPIRATORY DISTRESS. HEART RATE WAS 120-130s. DILT INFUSING. PT ALERT AND ORIENTED X 4. FOLLOWS COMMANDS. CALLS APPROPRIATELY. PT REQUESTED PURWICK D/T RECEIVING LASIX IN ED. BED LOCKED IN LOWEST POSITION. CALL LIGHT WITHIN REACH. POTASSIUM DROPPED FROM 4.3 TO 3.3 THIS MORNING. PROVIDER NOTIFIED. REPLACEMENT INFUSING ORDERED.
[2025-07-09] MEDS ORDERED: NS 250 ML IV PRN (07:20)
[2025-07-09] MEDS ORDERED: Acetaminophen 500MG/DP-Hydram 25MG HCL 1 Tab PO PRN (09:30)
[2025-07-09] MEDS ORDERED: Formoterol/Mometasone MDI 5/200 mcg 13 GM INH SCH (10:55)
--- NOTE | 2025-07-09 15:45 | NUR ---
END OF SHIFT NOTE PT IS A&O X4, COOPERATIVE W/ CARE, ABLE TO EXPRESS NEEDS. TRANSFER IN RM W/ 1 AST. PT SATTING OVER 93% ON RA, NO C/O SOB AT THIS TIME. PT WAS IN AFIB 100s-130s THROUGHOUT MOST OF SHIFT SO FAR BUT HAS RECENTLY BEEN AFIB 80s-100s SINCE RECIEVING CARDIZEM GTT. GTT CURRENTLY ON STANDBY SINCE IMPROVING IN RATE, PROVIDER AWARE. BPs STABLE W/ MAPs OVER 65. NO C/O CHEST PAIN. PUREWICK IN PLACE WITH FREQUENT VOIDS DUE TO PT BEING DIURESED. PT EDUCATED ON CPAP COMPLIANCE AND HAS BEEN AGREEABLE TO WEAR CPAP TONIGHT AND MOVING FORWARD. PTs BEST FRIEND KEILA CAME TO VISIT AND HAS BEEN UPDATED ON CARE. SEE DONTRELL RNs NOTES FOR UPDATES.
--- NOTE | 2025-07-09 19:45 | NUR ---
ASSUMED CARE AT APPROX 1900 PT IS A&OX4 ABLE TO MAKE NEEDS KNOWN, SITTING UP IN A RECLINER. HR AFIB IN THE LOW 100'S, DENIES CHEST PAIN OR PRESSURE. SPO2 >93% ON RA, BREATHING EVEN AND UNLABORED. PT ENDORSED HAVING SOME PAIN IN HER L SHOULDER WHICH SHE STATES IS CHRONIC, OFFERED PRN TYLENOL PT DENIED THIS OFFER. PURWICK IN PLACE WITH DENNIS COLORED URINE IN THE CANISTER. CALL LIGHT IN REACH.
[2025-07-10 05:06] VITALS: BP 113/67
[2025-07-10 05:26] LABS: Anion Gap 7.0 mmol/L (3-11); Blood Urea Nitrogen 20.0 mg/dL (8-24); CO2, Blood 31.0 mmol/L (21-32); Calcium, Blood 9.3 mg/dL (8.5-10.1); Chloride, Blood 97.0 mmol/L (98-108); Creatinine, Blood 1.04 mg/dL (0.40-1.00); Glucose, Blood 133.0 mg/dL (70-99); Potassium, Blood 3.4 mmol/L (3.5-5.5); Sodium, Blood 132.0 mmol/L (136-145)
--- NOTE | 2025-07-10 05:58 | NUR ---
NOC SHIFT SUMMARY PT REMAINS A&OX4 AND ABLE TO MAKE NEEDS KNOWN. PT WAS ABLE TO REST MOST OF THE NIGHT ONCE TYLENOL PM WAS GIVEN. SHE DID WEAR CPAP ALL NIGHT ONCE SHE GOT READY FOR BED. DENIES CHEST PAIN OR PRESSURE, DENIES NEEDS AT THIS TIME. NO ACUTE CHANGES TO REPORT OVER NIGHT. BED IN LOW, CALL LIGHT IN REACH.
[2025-07-10] MEDS ORDERED: Amiodarone HCl 450 MG in NS 250 ML IV SCH (07:00)
[2025-07-10 07:42] VITALS: BP 133/100
[2025-07-10] MEDS ORDERED: ORPHENADRINE CITRATE PO SCH (09:00)
--- NOTE | 2025-07-10 10:28 | NUR ---
THIS RN TO ASSUME CARE, REPORT FROM [facility]. PT RESTING ON BED- COLD STORAGE SUPERVISOR TO ROOM TO ASSIST PT W/ SHOWER. PT AOX4 AND RESPONDING TO QUESTIONS APPROPRIATELY. PT ON ROOM AIR. AFIB RATE ON MONITOR. AMIODARONE INFUSING 33.3ML/HR. CALL LIGHT W/ IN REACH PLAN OF CARE ONGOING
--- NOTE | 2025-07-10 11:48 | NUR ---
DR. ELLIS TO ROOM FOR PT EVAL AND TO UPDATE POC. NO NEW ORDERS AT THIS TIME. IMPORTANCE OF COMPLIANCE W/ MEDICATIONS AND CPAP AT NIGHT REINFORCED
[2025-07-10 12:00] VITALS: BP 122/85
[2025-07-10] MEDS ORDERED: Miconazole Nitrate 2% 85 GM PWD TOP SCH (14:00)
[2025-07-10 15:45] VITALS: BP 135/80
--- NOTE | 2025-07-10 17:57 | NUR ---
PT SUMMARY; REPORT RECEIVED FROM CRISTINA FOREMAN AT APPROX 1330. PT ON AMIO GTT CONVERTED TO SR AT 1445 RATE ON THE 70'S, DENIES CHEST PAIN/PRESSURE. DR ELLIS AND DR ROBERSON MADE AWARE, DR ROBERSON ORDERED PO AMIO TOMORROW AFTER THE AMIO GTT IS DONE INFUSING. ALERT AND ORIENTED X4, AMBULATORY IN THE ROOM. DENIES CHEST PAIN/PRESSURE. SBP 130'S. ON ROOMAIR, AFEBRILE. PT AWARE OF THE PLAN OF CARE. DENIES ANY NEED AT THIS TIME. WILL REPORT TO ONCOMING SHIFT
[2025-07-10 19:41] VITALS: BP 106/83
[2025-07-10 23:45] VITALS: BP 126/59
[2025-07-11 03:30] VITALS: BP 124/71
[2025-07-11 04:24] LABS: Anion Gap 7.0 mmol/L (3-11); Blood Urea Nitrogen 28.0 mg/dL (8-24); CO2, Blood 30.0 mmol/L (21-32); Calcium, Blood 9.3 mg/dL (8.5-10.1); Chloride, Blood 99.0 mmol/L (98-108); Creatinine, Blood 1.26 mg/dL (0.40-1.00); Glucose, Blood 136.0 mg/dL (70-99); Potassium, Blood 3.8 mmol/L (3.5-5.5); Sodium, Blood 132.0 mmol/L (136-145)
--- NOTE | 2025-07-11 04:45 | NUR ---
SHIFT SUMMARY: PATIENT IS A&OX4. PER LINEN GRADER PRINCE- PATIENT HAS BEEN IN NSR WITH HR IN THE 60'S-70'S BPM THROUGHOUT SHIFT. AMIO GTT CONTINUING TO RUN AT 16.7ML/HR. PATIENT DENIED PAIN THROUGHOUT SHIFT - PATIENT DID TAKE PO TYLENOL PM PRN PER NOV TO HELP HER SLEEP BUT NOT FOR PAIN. PATIENT WHEN AWAKE IS ON ROOM AIR WITH >90% SPO2, BUT WHEN SLEEPING PATIENT IS ON CPAP WITH >90% SPO2 WELL. OTHER VITALS HAVE BEEN STABLE. PATIENT IS CURRENTLY LAYING IN BED WITH CALL LIGHT IN REACH. SHE IS ABLE TO MAKE HER NEEDS KNOWN AND CALLS APPROPRIATELY.
--- NOTE | 2025-07-11 05:01 | NUR ---
UPDATE: NOTIFIED DR. HENSON ABOUT PATIENTS LAB RESULTS OF HER SODIUM BEING 132, IF HE WANTED TO REPLACE THAT ELECTROLYTE. NOTICED HER BUN IS 28 TODAY AND YESTERDAY WAS 20. WELL HER CREATININE TODAY IS 1.26 AND YESTERDAY WAS 1.04. ASKED IF MD ALSO WANTED TO GIVE HER SOME FLUIDS IV TO HELP WITH BUN AND CREATININE. MD RESPONDED "WILL REVIEW CHART AND UPDATE ORDERS NEEDED."
[2025-07-11 09:09] VITALS: BP 136/70
[2025-07-11 12:27] VITALS: BP 122/89
[2025-07-11] MEDS ORDERED: AMIODARONE HCL200 M1 PO (13:46)
[2025-07-11] MEDS ORDERED: AMIODARONE HCL400 M1 PO (13:46)
[2025-07-11] MEDS ORDERED: JARDIANCE10 MG PO (13:47)
[2025-07-11] MEDS ORDERED: Amiodarone HCl200 MG PO (13:47)
--- NOTE | 2025-07-11 15:34 | NUR ---
SHIFT SUMMARY DISCHARGE PATIENT AOX4 ABLE TO MAKE NEEDS KNOWN DENIES CP OR SOB. VITALS ARE STABLE AND SHE IS INDEPENDENT TO THE RESTROOM AND TOLERATING MEALS. SHE HAS BEEN NSR. HER DISCHARGE INSTRUCTIONS AND HEART FAILURE EDUCATION WAD EXPLAINED AND UNDERSTOOD.
== END 2025-07-11 15:57 | disposition home or self-care (01) | DRG 308 ==
LOC: ER 16:32 → PCU 16:33 → ERHOLD 16:33 → ER 16:33 → PCU 21:37 → ERHOLD 21:37 → PCU 07-09 16:24
PROVIDERS: Emergency Medicine; Family Medicine; Nurse Practitioner Acute Care; ADMIT Internal Medicine
DX: I48.91 Unspecified atrial fibrillation (principal); I50.21 Acute systolic (congestive) heart failure; E87.1 Hypo-osmolality and hyponatremia; J44.1 Chronic obstructive pulmonary disease with (acute) exacerbation; Z68.42 Body mass index [BMI] 45.0-49.9, adult; E83.42 Hypomagnesemia; E66.01 Morbid (severe) obesity due to excess calories; E78.5 Hyperlipidemia, unspecified; G47.33 Obstructive sleep apnea (adult) (pediatric); I11.0 Hypertensive heart disease with heart failure; I42.8 Other cardiomyopathies; E87.6 Hypokalemia; Z98.890 Other specified postprocedural states; Z79.01 Long term (current) use of anticoagulants; Z79.51 Long term (current) use of inhaled steroids; Z79.899 Other long term (current) drug therapy; Z88.1 Allergy status to other antibiotic agents; Z88.5 Allergy status to narcotic agent; Z88.8 Allergy status to other drugs, medicaments and biological substances; Z91.0110 Allergy to milk products, unspecified
CPT/HCPCS: 36415; 71045; 80048; 83735; 84439; 84443; 84484; 85025; 85027; 93005; 93010; 94640; 94660; 94664; 94762; 96365; 96366; 96367; 96375; 96376; 99285-25; A9270; C8929; G0378; J0282; J1938; J3475; J3480; J7050; Q9957

== ENCOUNTER → 2025-07-08 | Outpatient (CLI) | payer OTHER ==
[~2025-07-08] MED LIST changes: +AMIODARONE HCL200 M1 PO; +AMIODARONE HCL400 M1 PO; +AMLODIPINE BES2.5 MG PO; +Amiodarone HCl200 MG PO; +CIPROFLOX-DEXA7.5 ML BOTHEARS; +COMBIVENT RESPIM4 G1 IH; +FLUOXETINE HCL60 MG PO; +FLUTICASONE-SA1 EAC9 INH; +FUROSEMIDE40 MG PO; +Hydrocortiso453.6 G3 TOP; +JARDIANCE10 MG PO; +LOSARTAN POTAS100 M1 PO; +ROSUVASTATIN CAL5 MG PO
[2025-07-08 16:15] LABS: BASOPHILS ABSOLUTE AUTO 0.06 K/mm3 (0.00-0.23); BASOPHILS PERCENT AUTO 1 % (0-2); EOSINOPHILS ABSOLUTE AUTO 0.02 K/mm3 (0.00-0.68); EOSINOPHILS PERCENT AUTO 0 % (0-6); Hematocrit 36.3 % (33.0-51.0); Hemoglobin 12.6 g/dL (11.5-16.0); IMMATURE GRAN ABSOLUTE AUTO 0.13 K/mm3 (0.00-0.10); IMMATURE GRAN PERCENT AUTO 1 % (0-1); LYMPHOCYTES ABSOLUTE AUTO 1.33 K/mm3 (0.84-5.20); LYMPHOCYTES PERCENT AUTO 13 % (21-46); MONOCYTES ABSOLUTE AUTO 1.09 K/mm3 (0.16-1.47); MONOCYTES PERCENT AUTO 11 % (4-13); Mean Corpuscular HGB Conc 34.7 g/dL (31.5-36.5); Mean Corpuscular Volume 107 fL (80-100); NEUTROPHILS ABSOLUTE AUTO 7.73 K/mm3 (1.96-9.15); NEUTROPHILS PERCENT AUTO 75 % (41-73); NRBC ABSOLUTE 0.02 K/mm3 (0.00-0.02); NRBC Auto 0.2 /100 WBC (0.0-0.2); Platelet Count 226 K/mm3 (150-400); RDW Coefficient Variation 13.4 % (11.7-14.2); RDW Standard Deviation 51.9 fL (35.1-46.3)
[2025-07-08 16:26] LABS: Alanine Aminotransfer (ALT/SGP 37.0 U/L (12-78); Albumin, Blood 3.3 g/dL (3.4-5.0); Albumin/Globulin Ratio 1.0 (0.8-1.8); Anion Gap 12.0 mmol/L (3-11); Aspartate Aminotrans (AST/SGOT 44.0 U/L (12-37); Bilirubin, Total 1.1 mg/dL (0.1-1.0); Blood Urea Nitrogen 12.0 mg/dL (8-24); CO2, Blood 28.0 mmol/L (21-32); Calcium, Blood 8.9 mg/dL (8.5-10.1); Chloride, Blood 98.0 mmol/L (98-108); Creatinine, Blood 1.1 mg/dL (0.40-1.00); Globulin, Blood 3.2 g/dL (2.2-4.0); Glucose, Blood 138.0 mg/dL (70-99); Potassium, Blood 4.3 mmol/L (3.5-5.5); Sodium, Blood 134.0 mmol/L (136-145); Total Protein, Blood 6.5 g/dL (6.4-8.2)
== END ==
LOC: LAB SHORT 16:09 → LAB 16:09
PROVIDERS: Physician Assistant
DX: R07.9 Chest pain, unspecified (principal)
CPT/HCPCS: 80053; 83880; 84484; 85025

== ENCOUNTER 2025-07-27 15:22 | Emergency (ER) | payer OTHER ==
[~2025-07-27] VITALS: Ht 170.2 cm; Wt 127.0 kg
[~2025-07-27 15:22] MED LIST changes: +AMIODARONE HCL200 M1 PO; +AMIODARONE HCL400 M1 PO; +Amiodarone HCl200 MG PO; +JARDIANCE10 MG PO; +ROSUVASTATIN CAL5 MG PO
[2025-07-27 15:51] LABS: BASOPHILS ABSOLUTE AUTO 0.08 K/mm3 (0.00-0.23); BASOPHILS PERCENT AUTO 1 % (0-2); EOSINOPHILS ABSOLUTE AUTO 0.13 K/mm3 (0.00-0.68); EOSINOPHILS PERCENT AUTO 1 % (0-6); Hematocrit 28.7 % (33.0-51.0); Hemoglobin 9.6 g/dL (11.5-16.0); IMMATURE GRAN ABSOLUTE AUTO 0.12 K/mm3 (0.00-0.10); IMMATURE GRAN PERCENT AUTO 1 % (0-1); LYMPHOCYTES ABSOLUTE AUTO 1.86 K/mm3 (0.84-5.20); LYMPHOCYTES PERCENT AUTO 19 % (21-46); MONOCYTES ABSOLUTE AUTO 0.63 K/mm3 (0.16-1.47); MONOCYTES PERCENT AUTO 7 % (4-13); Mean Corpuscular HGB Conc 33.4 g/dL (31.5-36.5); Mean Corpuscular Volume 111 fL (80-100); NEUTROPHILS ABSOLUTE AUTO 6.87 K/mm3 (1.96-9.15); NEUTROPHILS PERCENT AUTO 71 % (41-73); NRBC ABSOLUTE 0.03 K/mm3 (0.00-0.02); NRBC Auto 0.3 /100 WBC (0.0-0.2); Platelet Count 251 K/mm3 (150-400); RDW Coefficient Variation 13.5 % (11.7-14.2); RDW Standard Deviation 54.2 fL (35.1-46.3)
[2025-07-27 16:14] LABS: Alanine Aminotransfer (ALT/SGP 32.0 U/L (12-78); Albumin, Blood 3.6 g/dL (3.4-5.0); Albumin/Globulin Ratio 1.3 (0.8-1.8); Anion Gap 12.0 mmol/L (3-11); Aspartate Aminotrans (AST/SGOT 35.0 U/L (12-37); Bilirubin, Total 0.8 mg/dL (0.1-1.0); Blood Urea Nitrogen 10.0 mg/dL (8-24); CO2, Blood 27.0 mmol/L (21-32); Calcium, Blood 8.9 mg/dL (8.5-10.1); Chloride, Blood 102.0 mmol/L (98-108); Creatinine, Blood 1.09 mg/dL (0.40-1.00); Globulin, Blood 2.7 g/dL (2.2-4.0); Glucose, Blood 104.0 mg/dL (70-99); Potassium, Blood 4.5 mmol/L (3.5-5.5); Sodium, Blood 136.0 mmol/L (136-145); Total Protein, Blood 6.3 g/dL (6.4-8.2)
[2025-07-27 17:00] VITALS: BP 115/88
[2025-07-27] MEDS ORDERED: MEDR10 PO (17:17)
== END 2025-07-27 18:34 | disposition home or self-care (01) ==
LOC: ER 15:22
PROVIDERS: Student in an Organized Health Care Education/Training Program
DX: N93.9 Abnormal uterine and vaginal bleeding, unspecified (principal); D50.0 Iron deficiency anemia secondary to blood loss (chronic); Z91.0110 Allergy to milk products, unspecified; Z79.01 Long term (current) use of anticoagulants; Z79.899 Other long term (current) drug therapy
CPT/HCPCS: 71046; 76830; 76856; 80053; 83880; 84484; 85025; 86850; 86900; 86901; 93005; 93010; 99284-25; A9270

== ENCOUNTER 2025-07-29 17:57 | Inpatient (IN) | payer OTHER ==
[~2025-07-29] VITALS: Ht 170.2 cm; Wt 128.8 kg
[~2025-07-29 17:57] MED LIST changes: +MEDR10 PO
[2025-07-29] MEDS ORDERED: ENTRESTO 49 MG1 EACH PO (19:04)
[2025-07-29] MEDS ORDERED: FURO40 PO (19:06)
[2025-07-29] MEDS ORDERED: MEDR10 PO (19:07)
[2025-07-29 19:37] LABS: BASOPHILS ABSOLUTE AUTO 0.09 K/mm3 (0.00-0.23); BASOPHILS PERCENT AUTO 1 % (0-2); EOSINOPHILS ABSOLUTE AUTO 0.13 K/mm3 (0.00-0.68); EOSINOPHILS PERCENT AUTO 1 % (0-6); Hematocrit 21.8 % (33.0-51.0); Hemoglobin 7.3 g/dL (11.5-16.0); IMMATURE GRAN ABSOLUTE AUTO 0.12 K/mm3 (0.00-0.10); IMMATURE GRAN PERCENT AUTO 1 % (0-1); LYMPHOCYTES ABSOLUTE AUTO 2.17 K/mm3 (0.84-5.20); LYMPHOCYTES PERCENT AUTO 22 % (21-46); MONOCYTES ABSOLUTE AUTO 0.98 K/mm3 (0.16-1.47); MONOCYTES PERCENT AUTO 10 % (4-13); Mean Corpuscular HGB Conc 33.5 g/dL (31.5-36.5); Mean Corpuscular Volume 112 fL (80-100); NEUTROPHILS ABSOLUTE AUTO 6.55 K/mm3 (1.96-9.15); NEUTROPHILS PERCENT AUTO 65 % (41-73); NRBC ABSOLUTE 0.08 K/mm3 (0.00-0.02); NRBC Auto 0.8 /100 WBC (0.0-0.2); Platelet Count 218 K/mm3 (150-400); RDW Coefficient Variation 14.0 % (11.7-14.2); RDW Standard Deviation 53.4 fL (35.1-46.3)
[2025-07-29 19:41] LABS: Source, Urine Clean Catch
[2025-07-29 19:44] LABS: Alanine Aminotransfer (ALT/SGP 25.0 U/L (12-78); Albumin, Blood 3.2 g/dL (3.4-5.0); Albumin/Globulin Ratio 1.3 (0.8-1.8); Anion Gap 11.0 mmol/L (3-11); Aspartate Aminotrans (AST/SGOT 23.0 U/L (12-37); Bilirubin, Total 0.8 mg/dL (0.1-1.0); Blood Urea Nitrogen 16.0 mg/dL (8-24); CO2, Blood 26.0 mmol/L (21-32); Calcium, Blood 8.1 mg/dL (8.5-10.1); Chloride, Blood 101.0 mmol/L (98-108); Creatinine, Blood 1.27 mg/dL (0.40-1.00); Globulin, Blood 2.5 g/dL (2.2-4.0); Glucose, Blood 90.0 mg/dL (70-99); Magnesium, Blood 1.8 mg/dL (1.6-2.4); Potassium, Blood 3.3 mmol/L (3.5-5.5); Sodium, Blood 135.0 mmol/L (136-145); Total Protein, Blood 5.7 g/dL (6.4-8.2)
[2025-07-29 19:52] LABS: Prothrombin Time Results 11.9 Sec (9.7-11.5)
[2025-07-29 20:05] LABS: Bilirubin, Urine Neg (Neg); Color, Urine Red (P-Yellow); Glucose Qualitative, Urine 3+ (Neg); Ketones, Urine Neg (Neg); Leukocyte Esterase, Urine 1+ (Neg); Protein, Urine 3+ (Neg); Specific Gravity, Urine 1.010 (1.003-1.022); Urobilinogen, Urine NORM (Normal)
[2025-07-29 20:13] LABS: Red Blood Cells, Urine TNTC /hpf (0-2); White Blood Cells, Urine 0-2 /hpf (0-5)
[2025-07-29] MEDS ORDERED: NS 1,000 ML IV ONE (20:59)
[2025-07-29 22:15] VITALS: BP 156/67
[2025-07-29] MEDS ORDERED: AMLO5 PO (22:37)
[2025-07-29 22:43] VITALS: BP 142/89
--- NOTE | 2025-07-29 22:55 | NUR ---
ARRIVAL TO UNIT PT ARRIVED FROM ER @ 2200. UNIT OF RBC INFUSING. VSS. DR. RODRÍGUEZ UPDATED ON PT'S ARRIVAL TO FLOOR. CONTINUE INFUSING 1 UNIT RBC, CBC IN THE AM, AND START HOME MEDS IN AM PER DR. RODRÍGUEZ.
[2025-07-29] MEDS ORDERED: Acetaminophen 500MG/DP-Hydram 25MG HCL 1 Tab PO SCH (23:05)
[2025-07-30] VITALS (22 sets, daily range): BP systolic 90–146; BP diastolic 37–94
--- NOTE | 2025-07-30 00:45 | NUR ---
BLOOD INFUSION COMPLETED @ 0026. PT TOLERATED WELL. VSS.
[2025-07-30 04:32] LABS: BASOPHILS ABSOLUTE AUTO 0.07 K/mm3 (0.00-0.23); BASOPHILS PERCENT AUTO 1 % (0-2); EOSINOPHILS ABSOLUTE AUTO 0.06 K/mm3 (0.00-0.68); EOSINOPHILS PERCENT AUTO 1 % (0-6); Hematocrit 24.3 % (33.0-51.0); Hemoglobin 8.1 g/dL (11.5-16.0); IMMATURE GRAN ABSOLUTE AUTO 0.15 K/mm3 (0.00-0.10); IMMATURE GRAN PERCENT AUTO 1 % (0-1); LYMPHOCYTES ABSOLUTE AUTO 1.90 K/mm3 (0.84-5.20); LYMPHOCYTES PERCENT AUTO 16 % (21-46); MONOCYTES ABSOLUTE AUTO 1.14 K/mm3 (0.16-1.47); MONOCYTES PERCENT AUTO 10 % (4-13); Mean Corpuscular HGB Conc 33.3 g/dL (31.5-36.5); Mean Corpuscular Volume 108 fL (80-100); NEUTROPHILS ABSOLUTE AUTO 8.33 K/mm3 (1.96-9.15); NEUTROPHILS PERCENT AUTO 72 % (41-73); NRBC ABSOLUTE 0.08 K/mm3 (0.00-0.02); NRBC Auto 0.7 /100 WBC (0.0-0.2); Platelet Count 207 K/mm3 (150-400); RDW Coefficient Variation 16.5 % (11.7-14.2); RDW Standard Deviation 62.3 fL (35.1-46.3)
[2025-07-30] MEDS ORDERED: Albuterol HFA200 ACT/6.7 GM INH INH PRN (04:50)
--- NOTE | 2025-07-30 07:21 | NUR ---
SHIFT SUMMARY ADMITTED FOR VAGINAL BLEEDING. RECEIVED 1 UNIT RBC. REPEAT H&H THIS MORNING. PT REPORTED DIZZINESS THROUGHOUT SHIFT. 2 PERSON ASSIST TO RESTROOM. VSS. A&O X4. PT RESTING IN BED NO SIGNS OF DISTRESS NOTED. CALL LIGHT WITHIN REACH.
[2025-07-30] MEDS ORDERED: Sacubitril/Valsartan 49 MG/51 MG Tab PO SCH (09:00)
[2025-07-30] MEDS ORDERED: NS 250 ML IV PRN (13:20)
[2025-07-30 15:21] LABS: BASOPHILS ABSOLUTE AUTO 0.08 K/mm3 (0.00-0.23); BASOPHILS PERCENT AUTO 1 % (0-2); EOSINOPHILS ABSOLUTE AUTO 0.07 K/mm3 (0.00-0.68); EOSINOPHILS PERCENT AUTO 1 % (0-6); Hematocrit 23.1 % (33.0-51.0); Hemoglobin 7.6 g/dL (11.5-16.0); IMMATURE GRAN ABSOLUTE AUTO 0.16 K/mm3 (0.00-0.10); IMMATURE GRAN PERCENT AUTO 1 % (0-1); LYMPHOCYTES ABSOLUTE AUTO 1.79 K/mm3 (0.84-5.20); LYMPHOCYTES PERCENT AUTO 15 % (21-46); MONOCYTES ABSOLUTE AUTO 1.07 K/mm3 (0.16-1.47); MONOCYTES PERCENT AUTO 9 % (4-13); Mean Corpuscular HGB Conc 32.9 g/dL (31.5-36.5); Mean Corpuscular Volume 110 fL (80-100); NEUTROPHILS ABSOLUTE AUTO 8.65 K/mm3 (1.96-9.15); NEUTROPHILS PERCENT AUTO 73 % (41-73); NRBC ABSOLUTE 0.12 K/mm3 (0.00-0.02); NRBC Auto 1.0 /100 WBC (0.0-0.2); Platelet Count 213 K/mm3 (150-400); RDW Coefficient Variation 17.5 % (11.7-14.2); RDW Standard Deviation 66.8 fL (35.1-46.3)
--- NOTE | 2025-07-30 17:44 | NUR ---
SHIFT SUMMARY PT IS A/OX4, RESTING COMFORTABLY IN BED. CURRENTLY NPO AWAITING SURGERY. VSS, RECIEVED ONE UNIT PACKED RBC, TOLERATED WELL. PT IS VOIDING WELL, STILL PASSING LARGE CLOTS AND BLEEDING HEAVILY, MD AWARE. DENIES PAIN, N/V, AND CHEST PAIN/SOB. BED IN LOWEST POSITION CALL LIGHT IN REACH.
[2025-07-30 18:41] LABS: Alanine Aminotransfer (ALT/SGP 23.0 U/L (12-78); Albumin, Blood 3.1 g/dL (3.4-5.0); Albumin/Globulin Ratio 1.2 (0.8-1.8); Anion Gap 11.0 mmol/L (3-11); Aspartate Aminotrans (AST/SGOT 22.0 U/L (12-37); Bilirubin, Total 1.1 mg/dL (0.1-1.0); Blood Urea Nitrogen 23.0 mg/dL (8-24); CO2, Blood 27.0 mmol/L (21-32); Calcium, Blood 8.4 mg/dL (8.5-10.1); Chloride, Blood 101.0 mmol/L (98-108); Creatinine, Blood 1.61 mg/dL (0.40-1.00); Globulin, Blood 2.6 g/dL (2.2-4.0); Glucose, Blood 171.0 mg/dL (70-99); Potassium, Blood 4.0 mmol/L (3.5-5.5); Sodium, Blood 135.0 mmol/L (136-145); Total Protein, Blood 5.7 g/dL (6.4-8.2)
[2025-07-30] MEDS ORDERED: Etomidate 2MG / ML 10ML Vial ONE (20:07)
[2025-07-30] MEDS ORDERED: Rocuronium Bromide 10 MG/ML 5ML Injection IV ONE (20:21)
[2025-07-30] MEDS ORDERED: Ondansetron HCl 2 MG / ML 2ML Vial ONE (20:21)
[2025-07-30] MEDS ORDERED: Dexamethasone Sod Phos 10 MG/ML 1ML VIAL ONE (20:21)
[2025-07-30] MEDS ORDERED: ePHEDrine Sulfate 50 MG/ML 1ML Injection ONE (20:29)
[2025-07-30] MEDS ORDERED: Sugammadex Sodium 200 MG/2ML SDV (100 MG/ML) ONE (20:58)
--- NOTE | 2025-07-30 21:30 | NUR ---
PRBC ORDER PT HAD NEW PRBC ORDER PLACED WHILE IN SURGERY. ORDER CLARIFIED W/DR MORALES POST OP. PER DR MORALES, HOLD OFF ON BLOOD TRANSFUSION AT THIS TIME.
[2025-07-31] VITALS (9 sets, daily range): BP systolic 93–145; BP diastolic 50–88
--- NOTE | 2025-07-31 01:07 | NUR ---
ARRIVAL TO UNIT PT ARRIVED TO UNIT @ 2210 FROM PACU VIA GURNEY. BEDSIDE REPORT RECEIVED FROM SHOVEL ENGINEER. PT RIMA.
--- NOTE | 2025-07-31 05:07 | NUR ---
SHIFT SUMMARY POD 1 HYSTEROSCOPY w/D&C. PT TOLERATING PO INTAKE. PT DENIES N&V. VSS. PT REPORTS DECREASE IN VAGINAL BLEEDING TO SPOTTING. PT RESTING IN BED, RESPIRATION EVEN AND UNLABORED. CALL LIGHT WITHIN REACH.
[2025-07-31 06:26] LABS: BASOPHILS ABSOLUTE AUTO 0.03 K/mm3 (0.00-0.23); BASOPHILS PERCENT AUTO 0 % (0-2); EOSINOPHILS ABSOLUTE AUTO 0.00 K/mm3 (0.00-0.68); EOSINOPHILS PERCENT AUTO 0 % (0-6); Hematocrit 22.3 % (33.0-51.0); Hemoglobin 7.5 g/dL (11.5-16.0); IMMATURE GRAN ABSOLUTE AUTO 0.17 K/mm3 (0.00-0.10); IMMATURE GRAN PERCENT AUTO 2 % (0-1); LYMPHOCYTES ABSOLUTE AUTO 0.96 K/mm3 (0.84-5.20); LYMPHOCYTES PERCENT AUTO 9 % (21-46); MONOCYTES ABSOLUTE AUTO 0.25 K/mm3 (0.16-1.47); MONOCYTES PERCENT AUTO 2 % (4-13); Mean Corpuscular HGB Conc 33.6 g/dL (31.5-36.5); NEUTROPHILS ABSOLUTE AUTO 9.45 K/mm3 (1.96-9.15); NEUTROPHILS PERCENT AUTO 87 % (41-73); NRBC ABSOLUTE 0.06 K/mm3 (0.00-0.02); NRBC Auto 0.6 /100 WBC (0.0-0.2); Platelet Count 188 K/mm3 (150-400); RDW Coefficient Variation 21.3 % (11.7-14.2); RDW Standard Deviation 75.9 fL (35.1-46.3)
[2025-07-31 06:27] LABS: Mean Corpuscular Volume 103 fL (80-100)
[2025-07-31 06:49] LABS: Alanine Aminotransfer (ALT/SGP 21.0 U/L (12-78); Albumin, Blood 2.9 g/dL (3.4-5.0); Albumin/Globulin Ratio 1.2 (0.8-1.8); Anion Gap 11.0 mmol/L (3-11); Aspartate Aminotrans (AST/SGOT 19.0 U/L (12-37); Bilirubin, Total 0.8 mg/dL (0.1-1.0); Blood Urea Nitrogen 20.0 mg/dL (8-24); CO2, Blood 26.0 mmol/L (21-32); Calcium, Blood 8.1 mg/dL (8.5-10.1); Chloride, Blood 104.0 mmol/L (98-108); Creatinine, Blood 1.25 mg/dL (0.40-1.00); Globulin, Blood 2.5 g/dL (2.2-4.0); Glucose, Blood 158.0 mg/dL (70-99); Potassium, Blood 4.5 mmol/L (3.5-5.5); Sodium, Blood 136.0 mmol/L (136-145); Total Protein, Blood 5.4 g/dL (6.4-8.2)
[2025-07-31] MEDS ORDERED: NS 250 ML IV PRN (10:25)
[2025-07-31] MEDS ORDERED: Sod Ferric Gluc Complx/Sucrose 125 MG in NS 100 ML IV SCH (11:00)
--- NOTE | 2025-07-31 16:32 | NUR ---
Pt. is awake and sitting up in a chair when she welcomes my visit. Pt. is pleasant but displays evidence of severe shaking in her hands as I facilitate a life review. Consider matters of hemalatha and belief. While the tremors continue, the Pt. displays evidence of increased trust. Prayed with the Pt. Pt. verbalized gratitude fo rthe spiritual care visit.
--- NOTE | 2025-07-31 18:07 | NUR ---
SHIFT SUMMARY PT RECEIVED ONE UNIT OF PRBC TODAY. UP TO CHAIR FOR MOST OF THE DAY. PRESENTLY DENIES COMPLAINTS. WILL CONTINUE TO MONITOR.
--- NOTE | 2025-07-31 22:13 | NUR ---
ASSUMPTION OF CARE: THIS RN ASSUMED CARE OF PATIENT. AWAKE DURING SHIFT CHANGE REPORT. SITTING UP IN RECLINER, WATCHING TV. BREATHING EVEN AND UNLABORED c ROOM AIR. BED IN LOWEST POSITION. CALL LIGHT WITHIN REACH. ACUTE NEEDS MET.
[2025-08-01 04:44] VITALS: BP 130/77
--- NOTE | 2025-08-01 06:24 | NUR ---
END OF SHIFT SUMMARY: A&Ox4. PLEASANT AND COOPERATIVE WITH CARE. CALLS APPROPRIATELY AND IS ABLE TO ADVOCATE NEEDS EFFECTIVELY. VSS. BREATHING EVEN AND UNLABORED c RA. CONTINENT OF BOWEL AND BLADDER; LBM 07/31/25. TOLERATING DIET. NO FURTHER REPORTS OF VAGINAL BLEEDING. AMBULATES INDEPENDENTLY. MEDS WHOLE c FLUIDS. STARTED NYSTATIN CREAM FOR YEAST RASH BENEATH BREAST. BED IN LOWEST POSITION, CALL LIGHT WITHIN REACH, ALL NEEDS MET. REPORT TO ONCOMING NURSE.
[2025-08-01 08:14] VITALS: BP 149/76
[2025-08-01 08:14] LABS: BASOPHILS ABSOLUTE AUTO 0.04 K/mm3 (0.00-0.23); BASOPHILS PERCENT AUTO 0 % (0-2); EOSINOPHILS ABSOLUTE AUTO 0.02 K/mm3 (0.00-0.68); EOSINOPHILS PERCENT AUTO 0 % (0-6); Hematocrit 28.2 % (33.0-51.0); Hemoglobin 9.6 g/dL (11.5-16.0); IMMATURE GRAN ABSOLUTE AUTO 0.32 K/mm3 (0.00-0.10); IMMATURE GRAN PERCENT AUTO 2 % (0-1); LYMPHOCYTES ABSOLUTE AUTO 2.03 K/mm3 (0.84-5.20); LYMPHOCYTES PERCENT AUTO 13 % (21-46); MONOCYTES ABSOLUTE AUTO 1.07 K/mm3 (0.16-1.47); MONOCYTES PERCENT AUTO 7 % (4-13); Mean Corpuscular HGB Conc 34.0 g/dL (31.5-36.5); Mean Corpuscular Volume 101 fL (80-100); NEUTROPHILS ABSOLUTE AUTO 12.16 K/mm3 (1.96-9.15); NEUTROPHILS PERCENT AUTO 78 % (41-73); NRBC ABSOLUTE 0.13 K/mm3 (0.00-0.02); NRBC Auto 0.8 /100 WBC (0.0-0.2); Platelet Count 228 K/mm3 (150-400); RDW Coefficient Variation 22.0 % (11.7-14.2); RDW Standard Deviation 73.6 fL (35.1-46.3)
[2025-08-01 09:03] LABS: Anion Gap 11.0 mmol/L (3-11); Blood Urea Nitrogen 21.0 mg/dL (8-24); CO2, Blood 24.0 mmol/L (21-32); Calcium, Blood 9.4 mg/dL (8.5-10.1); Chloride, Blood 102.0 mmol/L (98-108); Creatinine, Blood 1.18 mg/dL (0.40-1.00); Glucose, Blood 141.0 mg/dL (70-99); Potassium, Blood 4.0 mmol/L (3.5-5.5); Sodium, Blood 133.0 mmol/L (136-145)
--- NOTE | 2025-08-01 14:18 | NUR ---
DISCHARGE ALL INSTRUCTIONS READ AND SIGNED, PATIENT TOLERATING PO INTAKE, NO BLEEDING NOTED ON JANELLE-PAD, VOIDING. UP IN ROOM INDEPENDENTLY. MEDICATIONS RECONCILED AND FOLLOW UP APPOINTMENTS REFFERED. PATIENT GETS DRESSED AND IV IS TAKEN OUT INTACT. WHEELED OUT TO AWAITING CAR.
== END 2025-08-01 14:04 | disposition home or self-care (01) | DRG 742 ==
LOC: ER 17:57 → SURS 17:58
PROVIDERS: Internal Medicine; Obstetrics & Gynecology; Student in an Organized Health Care Education/Training Program; ADMIT Obstetrics & Gynecology
PROC: 30233N1 Transfusion of Nonautologous Red Blood Cells into Peripheral Vein, Percutaneous Approach (ICD-10-PCS; 2025-07-29)
PROC: 0UB98ZZ Excision of Uterus, Via Natural or Artificial Opening Endoscopic (ICD-10-PCS; 2025-07-30)
PROC: 0UH97HZ Insertion of Contraceptive Device into Uterus, Via Natural or Artificial Opening (ICD-10-PCS; 2025-07-30)
PROC: 0UDB8ZZ Extraction of Endometrium, Via Natural or Artificial Opening Endoscopic (ICD-10-PCS; principal; 2025-07-30 20:30)
DX: N95.0 Postmenopausal bleeding (principal); D62 Acute posthemorrhagic anemia; I42.8 Other cardiomyopathies; Z68.41 Body mass index [BMI] 40.0-44.9, adult; I50.32 Chronic diastolic (congestive) heart failure; I48.0 Paroxysmal atrial fibrillation; I11.0 Hypertensive heart disease with heart failure; E78.5 Hyperlipidemia, unspecified; N84.0 Polyp of corpus uteri; G47.33 Obstructive sleep apnea (adult) (pediatric); R93.89 Abnormal findings on diagnostic imaging of other specified body structures; E66.01 Morbid (severe) obesity due to excess calories; I45.10 Unspecified right bundle-branch block; J98.4 Other disorders of lung; Z96.651 Presence of right artificial knee joint; Z88.1 Allergy status to other antibiotic agents; Z88.5 Allergy status to narcotic agent; Z88.8 Allergy status to other drugs, medicaments and biological substances; Z79.01 Long term (current) use of anticoagulants; Z79.51 Long term (current) use of inhaled steroids
CPT/HCPCS: 36415; 36430; 71046; 76830; 76856; 80048; 80053; 81001; 83735; 83880; 84484; 85025; 85610; 85730; 86850; 86900; 86901; 86923; 88305; 93005; 93010; 93308; 93321; 94760; 94762; 99284-25; 99285-25; A9270; G0378; J1100; J2405; J2704; J7030; J7050; J7120; J7297; P9016